=== PATIENT | male | born 1975 | race African-American/Black ===

== ENCOUNTER 2017-09-28 11:15 | Emergency (ER) | payer MEDICAID, MEDICARE ==
[~2017-09-28] VITALS: Ht 182.9 cm; Wt 81.8 kg
[~2017-09-28 11:15] MED LIST: RISP2TAB76 PO
[2017-09-28 12:46] LABS: BASOPHILS % (AUTO) 0.8 % (0.0-2.0); HEMATOCRIT 44.2 % (41-53); HEMOGLOBIN 15.1 g/dL (13.5-17.5); LYMPHOCYTES # (AUTO) 1.7 K/uL (1.0-4.8); LYMPHOCYTES % (AUTO) 23.2 % (22.0-44.0); MEAN CORPUSCULAR HEMOGLOBIN 30.7 pg (26.0-34.0); MEAN CORPUSCULAR HGB CONC 34.3 G/dL (31.0-37.0); MEAN CORPUSCULAR VOLUME 90 fL (80-100); MONOCYTES # (AUTO) 0.4 K/uL (0.1-1.0); MONOCYTES % (AUTO) 5.7 % (2.0-9.0); NEUTROPHILS % (AUTO) 68.3 % (40.0-70.0); PLATELET COUNT (AUTO) 232 K/uL (150-450); RED BLOOD CELL COUNT(AUTO) 4.94 MIL/uL (4.50-5.90); RED CELL DISTRIBUTION WIDTH 14.3 % (11.5-14.5)
[2017-09-28 12:56] LABS: ANION GAP 5 mmol/L (8-16); CALCIUM, TOTAL 9.2 mg/dL (8.8-10.5); CARBON DIOXIDE 34 mmol/L (22-29); CHLORIDE 101 mmol/L (98-107); CREATININE 0.96 mg/dL (0.60-1.30); GLOMERULAR FILTR. RATE CALC > 60 mL/min (>60); GLUCOSE,RANDOM 77 mg/dL (70-110); POTASSIUM 4.4 mmol/L (3.5-5.1); SODIUM SERUM 140 mmol/L (136-145); UREA NITROGEN, BLOOD 12 mg/dL (7-18)
[2017-09-28 13:02] LABS: ALANINE AMINOTRANSFERASE 46 U/L (12-78); ALBUMIN 3.7 g/dL (3.4-5.0); ALKALINE PHOSPHATASE 71 U/L (46-116); ASPARTATE AMINOTRANSFERASE 32 U/L (15-37); BILIRUBIN,TOTAL 0.3 mg/dL (0.1-1.0); TOTAL PROTEIN, SERUM 7.3 g/dL (6.4-8.2)
[2017-09-28 13:37] VITALS: BP 121/83
== END 2017-09-28 14:33 | disposition home or self-care (01) ==
LOC: EMS 11:17
DX: F20.9 Schizophrenia, unspecified (principal); F17.210 Nicotine dependence, cigarettes, uncomplicated
CPT/HCPCS: 36415; 80053; 85025; 99284; G0480

== ENCOUNTER 2018-01-01 17:10 | Emergency (ER) | payer MEDICARE, MEDICAID ==
[~2018-01-01] VITALS: Ht 182.9 cm; Wt 68.2 kg
[2018-01-01 18:54] VITALS: BP 130/72
== END 2018-01-01 19:53 | disposition left against medical advice (07) ==
LOC: EMS 17:12
DX: L84 Corns and callosities (principal); F17.210 Nicotine dependence, cigarettes, uncomplicated; Z88.8 Allergy status to other drugs, medicaments and biological substances
CPT/HCPCS: 99281; 99406

== ENCOUNTER 2018-01-04 16:37 | Emergency (ER) | payer MEDICARE, MEDICAID ==
[~2018-01-04] VITALS: Ht 182.9 cm; Wt 68.0 kg
[2018-01-04] MEDS ORDERED: BREX0.25 PO (16:49)
[2018-01-04 17:27] LABS: EOSINOPHILS % (AUTO) 3.7 % (1.0-6.0); HEMATOCRIT 42.9 % (41-53); HEMOGLOBIN 14.7 g/dL (13.5-17.5); LYMPHOCYTES # (AUTO) 2.2 K/uL (1.0-4.8); LYMPHOCYTES % (AUTO) 27.1 % (22.0-44.0); MEAN CORPUSCULAR HGB CONC 34.2 G/dL (31.0-37.0); MEAN CORPUSCULAR VOLUME 88 fL (80-100); MONOCYTES # (AUTO) 0.7 K/uL (0.1-1.0); MONOCYTES % (AUTO) 8.1 % (2.0-9.0); NEUTROPHILS # (AUTO) 4.9 K/uL (1.8-7.7); NEUTROPHILS % (AUTO) 60.1 % (40.0-70.0); PLATELET COUNT (AUTO) 257 K/uL (150-450); RED BLOOD CELL COUNT(AUTO) 4.89 MIL/uL (4.50-5.90); RED CELL DISTRIBUTION WIDTH 14.6 % (11.5-14.5)
[2018-01-04 17:40] LABS: AMPHET/METH SCREEN,URINE NEGATIVE (NEGATIVE); BARBITURATE SCREEN, URINE NEGATIVE (NEGATIVE); BENZODIAZEPINES SCREEN,URINE NEGATIVE (NEGATIVE); CANNABINOID SCREEN,URINE NEGATIVE (NEGATIVE); COCAINE SCREEN,URINE NEGATIVE (NEGATIVE); METHADONE SCREEN, URINE NEGATIVE (NEGATIVE); OPIATE SCREEN,URINE NEGATIVE (NEGATIVE); PHENCYCLIDINE SCREEN,URINE NEGATIVE (NEGATIVE)
[2018-01-04 17:43] LABS: ANION GAP 5 mmol/L (8-16); CALCIUM, TOTAL 9.2 mg/dL (8.8-10.5); CARBON DIOXIDE 31 mmol/L (22-29); CHLORIDE 102 mmol/L (98-107); GLOMERULAR FILTR. RATE CALC > 60 mL/min (>60); GLUCOSE,RANDOM 79 mg/dL (70-110); POTASSIUM 3.5 mmol/L (3.5-5.1); SODIUM SERUM 138 mmol/L (136-145); UREA NITROGEN, BLOOD 14 mg/dL (7-18)
[2018-01-04 17:49] LABS: ALANINE AMINOTRANSFERASE 36 U/L (12-78); ALBUMIN 3.6 g/dL (3.4-5.0); ALKALINE PHOSPHATASE 61 U/L (46-116); ASPARTATE AMINOTRANSFERASE 20 U/L (15-37); BILIRUBIN,TOTAL 0.2 mg/dL (0.1-1.0); TOTAL PROTEIN, SERUM 6.8 g/dL (6.4-8.2)
[2018-01-04 18:05] VITALS: BP 146/103
[2018-01-04] MEDS ORDERED: BACITRACIN 0.9 GM PACKET OINTMENT TP ONE (18:15)
[2018-01-05 10:21] LABS: GLUCOSE,POINT OF CARE 85 MG/DL (70-110)
== END 2018-01-04 18:39 | disposition home or self-care (01) ==
LOC: EMS 17:10
DX: F20.9 Schizophrenia, unspecified (principal); R56.9 Unspecified convulsions; F17.210 Nicotine dependence, cigarettes, uncomplicated
CPT/HCPCS: 36415; 80053; 80307; 82962; 85025; 99284; G0480

== ENCOUNTER 2018-01-06 12:28 | Emergency (ER) | payer MEDICARE, MEDICAID ==
[~2018-01-06] VITALS: Ht 182.9 cm; Wt 68.2 kg
[~2018-01-06 12:28] MED LIST changes: +BREX0.25 PO; -RISP2TAB76 PO
[2018-01-06 13:08] VITALS: BP 116/78
== END 2018-01-06 14:04 | disposition home or self-care (01) ==
LOC: EMS 12:32
DX: L84 Corns and callosities (principal); F20.9 Schizophrenia, unspecified; G40.909 Epilepsy, unspecified, not intractable, without status epilepticus; F17.210 Nicotine dependence, cigarettes, uncomplicated; Z88.8 Allergy status to other drugs, medicaments and biological substances
CPT/HCPCS: 99281

== ENCOUNTER 2018-01-30 12:55 | Emergency (ER) | payer MEDICARE, MEDICAID ==
[~2018-01-30] VITALS: Ht 182.9 cm; Wt 68.2 kg
[2018-01-30 13:00] VITALS: BP 147/72
== END 2018-01-30 15:31 | disposition left against medical advice (07) ==
LOC: EMS 12:56
DX: Z00.8 Encounter for other general examination (principal); F20.9 Schizophrenia, unspecified; Z53.21 Procedure and treatment not carried out due to patient leaving prior to being seen by health care provider

== ENCOUNTER 2018-03-13 19:51 | Emergency (ER) | payer MEDICARE, MEDICAID ==
[~2018-03-13] VITALS: Ht 188 cm; Wt 81.8 kg
[2018-03-13 21:10] VITALS: BP 130/96
[2018-03-13] MEDS ORDERED: VITAMINS A & D 5 GM OINTMENT PACKET TP ONE (21:15)
[2018-03-13] MEDS ORDERED: ACETAMINOPHEN 500 MG TABLET PO ONE (21:15)
== END 2018-03-13 21:20 | disposition home or self-care (01) ==
LOC: EMS 19:52
DX: L84 Corns and callosities (principal); F20.9 Schizophrenia, unspecified; F17.210 Nicotine dependence, cigarettes, uncomplicated; F15.10 Other stimulant abuse, uncomplicated
CPT/HCPCS: 99283; 99406

== ENCOUNTER 2018-10-06 09:08 | Emergency (ER) | payer MEDICARE, MEDICAID ==
[~2018-10-06] VITALS: Ht 172.7 cm; Wt 79.5 kg
[2018-10-06] MEDS ORDERED: BREX3TAB PO (09:17)
[2018-10-06] MEDS ORDERED: IBUPROFEN 800 MG TABLET PO ONE (11:15)
[2018-10-06 11:28] VITALS: BP 126/81
== END 2018-10-06 11:31 | disposition home or self-care (01) ==
LOC: EMS 09:08
DX: S46.912A Strain of unspecified muscle, fascia and tendon at shoulder and upper arm level, left arm, initial encounter (principal); F17.210 Nicotine dependence, cigarettes, uncomplicated; F15.90 Other stimulant use, unspecified, uncomplicated; Z79.899 Other long term (current) drug therapy; X58.XXXA Exposure to other specified factors, initial encounter; Y93.89 Activity, other specified; Y92.89 Other specified places as the place of occurrence of the external cause; Y99.8 Other external cause status

== ENCOUNTER 2019-01-27 14:30 | Emergency (ER) | payer MEDICARE, MEDICAID ==
[~2019-01-27] VITALS: Ht 185.4 cm; Wt 72.7 kg
[~2019-01-27 14:30] MED LIST changes: -BREX0.25 PO; +BREX3TAB PO
[2019-01-27 15:59] LABS: BASOPHILS % (AUTO) 0.8 % (0.0-2.0); EOSINOPHILS % (AUTO) 4.9 % (1.0-6.0); HEMATOCRIT 42.6 % (41-53); HEMOGLOBIN 14.7 g/dL (13.5-17.5); LYMPHOCYTES # (AUTO) 1.3 K/uL (1.0-4.8); LYMPHOCYTES % (AUTO) 22.3 % (22.0-44.0); MEAN CORPUSCULAR HEMOGLOBIN 30.1 pg (26.0-34.0); MEAN CORPUSCULAR HGB CONC 34.5 G/dL (31.0-37.0); MEAN CORPUSCULAR VOLUME 87 fL (80-100); MONOCYTES # (AUTO) 0.5 K/uL (0.1-1.0); MONOCYTES % (AUTO) 8.9 % (2.0-9.0); NEUTROPHILS # (AUTO) 3.8 K/uL (1.8-7.7); NEUTROPHILS % (AUTO) 63.1 % (40.0-70.0); PLATELET COUNT (AUTO) 264 K/uL (150-450); RED BLOOD CELL COUNT(AUTO) 4.89 MIL/uL (4.50-5.90); RED CELL DISTRIBUTION WIDTH 13.8 % (11.5-14.5)
[2019-01-27 16:10] LABS: ANION GAP 5 mmol/L (8-16); CALCIUM, TOTAL 8.4 mg/dL (8.8-10.5); CARBON DIOXIDE 29 mmol/L (22-29); CHLORIDE 104 mmol/L (98-107); CREATININE 0.94 mg/dL (0.60-1.30); GLOMERULAR FILTR. RATE CALC > 60 mL/min (>60); GLUCOSE,RANDOM 109 mg/dL (70-110); SODIUM SERUM 138 mmol/L (136-145); UREA NITROGEN, BLOOD 25 mg/dL (7-18)
[2019-01-27 16:18] LABS: ALANINE AMINOTRANSFERASE 27 U/L (12-78); ALBUMIN 3.4 g/dL (3.4-5.0); ALKALINE PHOSPHATASE 73 U/L (46-116); ASPARTATE AMINOTRANSFERASE 27 U/L (15-37); BILIRUBIN,TOTAL 0.3 mg/dL (0.1-1.0); TOTAL PROTEIN, SERUM 6.8 g/dL (6.4-8.2)
[2019-01-27 16:19] LABS: AMPHET/METH SCREEN,URINE POSITIVE (NEGATIVE); BARBITURATE SCREEN, URINE NEGATIVE (NEGATIVE); BENZODIAZEPINES SCREEN,URINE NEGATIVE (NEGATIVE); CANNABINOID SCREEN,URINE NEGATIVE (NEGATIVE); COCAINE SCREEN,URINE NEGATIVE (NEGATIVE); METHADONE SCREEN, URINE NEGATIVE (NEGATIVE); OPIATE SCREEN,URINE NEGATIVE (NEGATIVE)
[2019-01-27 16:30] LABS: PHENCYCLIDINE SCREEN,URINE NEGATIVE (NEGATIVE)
[2019-01-27] MEDS: ARIPiprazole 5 MG TABLET PO ONE (16:58)
[2019-01-27 17:59] VITALS: BP 125/78
== END 2019-01-27 18:15 | disposition home or self-care (01) ==
LOC: EMS 14:32
DX: F20.9 Schizophrenia, unspecified (principal); F17.210 Nicotine dependence, cigarettes, uncomplicated; F15.90 Other stimulant use, unspecified, uncomplicated; Z88.8 Allergy status to other drugs, medicaments and biological substances
CPT/HCPCS: 36415; 80053; 80307; 85025; 99284; 99406; G0480

== ENCOUNTER 2019-04-19 19:56 | Inpatient (IN) | payer MEDICAID, MEDICARE ==
[~2019-04-19] VITALS: Ht 182.9 cm; Wt 66.7 kg
[2019-04-19] MEDS ORDERED: ZOLPIDEM TARTRATE 10 MG TABLET PO PRN (20:30)
[2019-04-19 20:42] VITALS: BP 121/92
[2019-04-19 21:16] VITALS: BP 119/86
[2019-04-19] MEDS ORDERED: MAGNESIUM HYDROXIDE SUSPENSION 30 ML UDCUP PO PRN (22:15)
[2019-04-19] MEDS ORDERED: LOPERAMIDE HCL 2 MG CAPSULE PO PRN (22:15)
[2019-04-19] MEDS ORDERED: PETROLATUM,WHITE 28 GM JELLY TP PRN (22:15)
[2019-04-19] MEDS ORDERED: ONDANSETRON HCL 4 MG TABLET PO PRN (22:15)
[2019-04-19] MEDS ORDERED: CloNIDine HCL 0.1 MG TABLET PO PRN (22:15)
[2019-04-19] MEDS ORDERED: ACETAMINOPHEN 325 MG TABLET PO PRN (22:15)
[2019-04-19] MEDS ORDERED: NICOTINE 14 MG/24 HOUR PATCH TD PRN (22:15)
[2019-04-19] MEDS ORDERED: IBUPROFEN 400 MG TABLET PO PRN (22:15)
[2019-04-19] MEDS ORDERED: ALBUTEROL SULFATE HFA 90 MCG/PUFF 8 GM INHALER IH PRN (22:15)
[2019-04-19] MEDS ORDERED: DOCUSATE SODIUM 100 MG CAPSULE PO PRN (22:15)
[2019-04-19] MEDS ORDERED: MAG HYDROX/AL HYDROX/SIMETH ES 30 ML SUSPENSION UDCUP PO PRN (22:15)
[2019-04-19] MEDS ORDERED: GuaiFENesin/D-METHORPHAN [SUGAR-FREE] 200-20MG/10 ML SYRUP UDCUP PO PRN (22:15)
[2019-04-20 00:13] VITALS: BP 126/82
[2019-04-20 08:13] VITALS: BP 119/71
[2019-04-20 08:14] LABS: BASOPHILS % (AUTO) 0.4 % (0.0-2.0); EOSINOPHILS % (AUTO) 3.2 % (1.0-6.0); HEMATOCRIT 43.4 % (41-53); HEMOGLOBIN 14.3 g/dL (13.5-17.5); LYMPHOCYTES # (AUTO) 1.7 K/uL (1.0-4.8); LYMPHOCYTES % (AUTO) 25.9 % (22.0-44.0); MEAN CORPUSCULAR HEMOGLOBIN 29.7 pg (26.0-34.0); MEAN CORPUSCULAR VOLUME 90 fL (80-100); MONOCYTES # (AUTO) 0.5 K/uL (0.1-1.0); MONOCYTES % (AUTO) 8.3 % (2.0-9.0); NEUTROPHILS % (AUTO) 62.2 % (40.0-70.0); PLATELET COUNT (AUTO) 257 K/uL (150-450); RED BLOOD CELL COUNT(AUTO) 4.83 MIL/uL (4.50-5.90)
[2019-04-20 08:37] LABS: ALANINE AMINOTRANSFERASE 29 U/L (12-78); ALBUMIN 3.2 g/dL (3.4-5.0); ALKALINE PHOSPHATASE 65 U/L (46-116); ANION GAP 7 mmol/L (8-16); ASPARTATE AMINOTRANSFERASE 21 U/L (15-37); BILIRUBIN,TOTAL 0.1 mg/dL (0.1-1.0); CALCIUM, TOTAL 8.5 mg/dL (8.8-10.5); CARBON DIOXIDE 29 mmol/L (22-29); CHLORIDE 105 mmol/L (98-107); CHOLESTEROL 155 mg/dL (131-200); FREE T4 (FREE THYROXINE) 0.67 ng/dL (0.76-1.46); GLOMERULAR FILTR. RATE CALC > 60 mL/min (>60); GLUCOSE,RANDOM 82 mg/dL (70-110); HDL CHOLESTEROL 52 mg/dL (40-60); LDL CHOL (CALC.) 86 mg/dL (0-130); POTASSIUM 4.3 mmol/L (3.5-5.1); SODIUM SERUM 141 mmol/L (136-145); THYROID STIMULATING HORMONE 0.75 uIU/mL (0.36-3.74); TOTAL PROTEIN, SERUM 6.2 g/dL (6.4-8.2); TRIGLYCERIDES 85 mg/dL (15-150); UREA NITROGEN, BLOOD 13 mg/dL (7-18)
[2019-04-20] MEDS: ARIPiprazole 10 MG TABLET PO SCH (10:15)
[2019-04-20 16:08] VITALS: BP 120/87
[2019-04-21 05:04] VITALS: BP 119/60
[2019-04-21 08:50] VITALS: BP 118/75
[2019-04-21] MEDS: ARIPiprazole 10 MG TABLET PO SCH (08:56)
[2019-04-21 16:16] VITALS: BP 131/82
[2019-04-22 01:35] VITALS: BP 120/89
[2019-04-22] MEDS: ARIPiprazole 10 MG TABLET PO SCH (08:06)
[2019-04-22 08:13] VITALS: BP 114/81
[2019-04-22 16:00] VITALS: BP 112/69
[2019-04-22] MEDS: BREXPIPRAZOLE 1 MG TABLET PO SCH (20:36)
[2019-04-23 06:29] VITALS: BP 110/70
[2019-04-23 08:34] VITALS: BP 110/60
[2019-04-23 08:40] LABS: AMPHET/METH SCREEN,URINE NEGATIVE (NEGATIVE); BARBITURATE SCREEN, URINE NEGATIVE (NEGATIVE); BENZODIAZEPINES SCREEN,URINE NEGATIVE (NEGATIVE); CANNABINOID SCREEN,URINE NEGATIVE (NEGATIVE); COCAINE SCREEN,URINE NEGATIVE (NEGATIVE); METHADONE SCREEN, URINE NEGATIVE (NEGATIVE); OPIATE SCREEN,URINE NEGATIVE (NEGATIVE)
[2019-04-23 08:42] LABS: PHENCYCLIDINE SCREEN,URINE NEGATIVE (NEGATIVE)
[2019-04-23 08:49] LABS: APPEARANCE,URINE CLEAR (CLEAR); BILIRUBIN,URINE NEGATIVE (NEGATIVE); GLUCOSE, URINE (UA) NEGATIVE (NEGATIVE); KETONES,URINE NEGATIVE (NEGATIVE); LEUKOCYTE ESTERASE ,URINE NEGATIVE (NEGATIVE); NITRATE,URINE NEGATIVE (NEGATIVE); OCCULT BLOOD,URINE NEGATIVE (NEGATIVE); PH,URINE 6.5 (5.0-8.0); PROTEIN,URINE NEGATIVE (NEGATIVE); UROBILINOGEN,URINE 0.2 mg/dL (<=1.0)
[2019-04-23] MEDS: LORazepam 2 MG TABLET PO PRN (15:31)
[2019-04-23 16:13] VITALS: BP 120/71
[2019-04-23] MEDS: BREXPIPRAZOLE 1 MG TABLET PO SCH (20:22)
[2019-04-24 06:05] VITALS: BP 118/64
[2019-04-24 08:49] VITALS: BP 126/69
[2019-04-24 16:08] VITALS: BP 116/69
[2019-04-24] MEDS: LORazepam 2 MG TABLET PO PRN (17:17)
[2019-04-24] MEDS: BREXPIPRAZOLE 1 MG TABLET PO SCH (20:31)
[2019-04-25 05:03] VITALS: BP 120/81
[2019-04-25 08:12] VITALS: BP 117/71
[2019-04-25] MEDS ORDERED: BREX1TAB PO (11:01)
[2019-04-25] MEDS ORDERED: BREX3TAB PO (11:14)
== END 2019-04-25 12:32 | disposition home or self-care (01) | DRG 885 ==
LOC: B2X 20:25
PROVIDERS: ADMIT Psychiatry & Neurology Child & Adolescent Psychiatry; ATTEND Psychiatry & Neurology Child & Adolescent Psychiatry
DX: F25.0 Schizoaffective disorder, bipolar type (principal); R45.851 Suicidal ideations; K21.9 Gastro-esophageal reflux disease without esophagitis; E78.5 Hyperlipidemia, unspecified; Z88.8 Allergy status to other drugs, medicaments and biological substances; F41.9 Anxiety disorder, unspecified
CPT/HCPCS: 80307; 83036; 84439; 84443

== ENCOUNTER 2019-06-29 18:29 | Emergency (ER) | payer MEDICARE ==
[~2019-06-29] VITALS: Ht 182.9 cm; Wt 70.5 kg
[~2019-06-29 18:29] MED LIST changes: +BREX1TAB PO
[2019-06-29 18:32] VITALS: BP 165/92
== END 2019-06-29 19:30 | disposition left against medical advice (07) ==
LOC: EMS 18:30
DX: R20.0 Anesthesia of skin (principal); Z53.21 Procedure and treatment not carried out due to patient leaving prior to being seen by health care provider

== ENCOUNTER 2019-07-15 13:29 | Emergency (ER) | payer MEDICARE ==
[~2019-07-15] VITALS: Ht 180.3 cm; Wt 70.5 kg
[~2019-07-15 13:29] MED LIST changes: -BREX1TAB PO
[2019-07-15 13:33] VITALS: BP 139/87
== END 2019-07-15 15:27 | disposition left against medical advice (07) ==
LOC: EMS 13:31
DX: F22 Delusional disorders (principal); Z53.21 Procedure and treatment not carried out due to patient leaving prior to being seen by health care provider

== ENCOUNTER 2019-09-01 02:42 | Emergency (ER) | payer MEDICARE | END 2019-09-01 02:45 | disposition left against medical advice (07) | LOC: EMS 02:43 | DX: Z53.21 Procedure and treatment not carried out due to patient leaving prior to being seen by health care provider (principal) ==

== ENCOUNTER 2019-10-11 13:01 | Emergency (ER) | payer MEDICARE | END 2019-10-11 13:32 | disposition left against medical advice (07) | LOC: EMS 13:07 | DX: R11.0 Nausea (principal); Z53.21 Procedure and treatment not carried out due to patient leaving prior to being seen by health care provider ==

== ENCOUNTER 2019-11-07 07:08 | Emergency (ER) | payer MEDICARE ==
[~2019-11-07] VITALS: Ht 180.3 cm; Wt 68.2 kg
[2019-11-07] MEDS ORDERED: BREXPIPRAZOLE 1 MG TABLET PO ONE (08:00)
[2019-11-07 08:19] VITALS: BP 128/66
== END 2019-11-07 08:28 | disposition home or self-care (01) ==
LOC: EMS 07:11
DX: K40.90 Unilateral inguinal hernia, without obstruction or gangrene, not specified as recurrent (principal); F20.9 Schizophrenia, unspecified; F17.210 Nicotine dependence, cigarettes, uncomplicated; F15.90 Other stimulant use, unspecified, uncomplicated; Z79.899 Other long term (current) drug therapy; Z88.8 Allergy status to other drugs, medicaments and biological substances

== ENCOUNTER 2019-11-10 07:17 | Emergency (ER) | payer MEDICAID, MEDICARE ==
[~2019-11-10] VITALS: Ht 180.3 cm; Wt 68.2 kg
[2019-11-10 07:26] VITALS: BP 119/84
== END 2019-11-10 08:49 | disposition home or self-care (01) ==
LOC: EMS 07:20
DX: F20.9 Schizophrenia, unspecified (principal); Z76.0 Encounter for issue of repeat prescription; F17.210 Nicotine dependence, cigarettes, uncomplicated; F15.90 Other stimulant use, unspecified, uncomplicated; Z79.899 Other long term (current) drug therapy; Z88.5 Allergy status to narcotic agent

== ENCOUNTER 2019-11-11 14:14 | Emergency (ER) | payer MEDICAID, MEDICARE ==
[~2019-11-11] VITALS: Ht 177.8 cm; Wt 68.2 kg
[2019-11-11 14:19] VITALS: BP 137/86
[2019-11-11 14:37] LABS: GLUCOSE,POINT OF CARE 84 MG/DL (70-110)
== END 2019-11-11 16:01 | disposition home or self-care (01) ==
LOC: EMS 14:17
DX: F20.9 Schizophrenia, unspecified (principal); F17.210 Nicotine dependence, cigarettes, uncomplicated; F15.90 Other stimulant use, unspecified, uncomplicated; Z88.8 Allergy status to other drugs, medicaments and biological substances; Z59.0 Homelessness

== ENCOUNTER 2019-11-15 09:42 | Emergency (ER) | payer MEDICARE ==
[~2019-11-15] VITALS: Ht 177.8 cm; Wt 68.2 kg
[2019-11-15 09:46] VITALS: BP 124/84
== END 2019-11-15 11:02 | disposition left against medical advice (07) ==
LOC: EMS 09:47
DX: R05 Cough (principal); Z53.21 Procedure and treatment not carried out due to patient leaving prior to being seen by health care provider

== ENCOUNTER 2019-11-18 06:52 | Emergency (ER) | payer MEDICARE ==
[~2019-11-18] VITALS: Ht 182.9 cm; Wt 72.7 kg
[2019-11-18] MEDS ORDERED: OLAN5TAB40 PO (07:05)
[2019-11-18 07:19] VITALS: BP 131/89
[2019-11-18] MEDS ORDERED: ACETAMINOPHEN 500 MG TABLET PO ONE (08:00)
== END 2019-11-18 08:00 | disposition home or self-care (01) ==
LOC: EMS 06:52
DX: K40.90 Unilateral inguinal hernia, without obstruction or gangrene, not specified as recurrent (principal); F20.9 Schizophrenia, unspecified; F12.90 Cannabis use, unspecified, uncomplicated; F15.90 Other stimulant use, unspecified, uncomplicated; F17.210 Nicotine dependence, cigarettes, uncomplicated; Z88.8 Allergy status to other drugs, medicaments and biological substances; Z79.899 Other long term (current) drug therapy

== ENCOUNTER 2019-12-19 14:46 | Emergency (ER) | payer MEDICARE ==
[~2019-12-19] VITALS: Ht 182.9 cm; Wt 80.9 kg
[~2019-12-19 14:46] MED LIST changes: +OLAN5TAB40 PO
[2019-12-19 14:53] VITALS: BP 118/86
== END 2019-12-19 15:50 | disposition left against medical advice (07) ==
LOC: EMS 14:49
DX: M79.672 Pain in left foot (principal); M79.671 Pain in right foot; E11.9 Type 2 diabetes mellitus without complications; F41.9 Anxiety disorder, unspecified; Z88.8 Allergy status to other drugs, medicaments and biological substances; Z79.899 Other long term (current) drug therapy
CPT/HCPCS: 82948

== ENCOUNTER 2020-12-28 09:21 | Emergency (ER) | payer MEDICARE ==
[~2020-12-28] VITALS: Ht 177.8 cm; Wt 75.0 kg
[2020-12-28 09:30] VITALS: BP 132/77
== END 2020-12-28 10:04 | disposition left against medical advice (07) ==
LOC: EMS 09:25
DX: J11.1 Influenza due to unidentified influenza virus with other respiratory manifestations (principal); Z53.21 Procedure and treatment not carried out due to patient leaving prior to being seen by health care provider

== ENCOUNTER 2020-12-29 09:14 | Emergency (ER) | payer MEDICARE | END 2020-12-29 09:40 | disposition left against medical advice (07) | LOC: EMS 09:20 | DX: R11.2 Nausea with vomiting, unspecified (principal); Z53.21 Procedure and treatment not carried out due to patient leaving prior to being seen by health care provider ==

== ENCOUNTER 2021-01-21 13:54 | Emergency (ER) | payer MEDICARE ==
[~2021-01-21] VITALS: Ht 182.9 cm; Wt 70.9 kg
[2021-01-21 15:35] LABS: COVID AG,FIA SOURCE NASOPHARYNGEAL
[2021-01-21] MEDS ORDERED: BENZONATATE 100 MG CAPSULE PO ONE (15:45)
[2021-01-21 16:29] VITALS: BP 126/90
== END 2021-01-21 16:50 | disposition home or self-care (01) ==
LOC: EMS 13:59
DX: R05 Cough (principal); F20.9 Schizophrenia, unspecified; F17.210 Nicotine dependence, cigarettes, uncomplicated; F12.90 Cannabis use, unspecified, uncomplicated; Z20.822 Contact with and (suspected) exposure to COVID-19; Z88.8 Allergy status to other drugs, medicaments and biological substances
CPT/HCPCS: 71045; 87426; 99284; U0003

== ENCOUNTER 2021-02-05 08:31 | Emergency (ER) | payer MEDICARE | END 2021-02-05 09:01 | disposition left against medical advice (07) | LOC: EMS 08:36 | DX: R05 Cough (principal); Z53.21 Procedure and treatment not carried out due to patient leaving prior to being seen by health care provider ==

== ENCOUNTER 2021-04-10 06:27 | Emergency (ER) | payer MEDICARE ==
[~2021-04-10] VITALS: Ht 182.9 cm; Wt 75.0 kg
[~2021-04-10 06:27] MED LIST changes: -OLAN5TAB40 PO; +OLAN5TAB94 PO
[2021-04-10 06:40] VITALS: BP 138/89
== END 2021-04-10 07:51 | disposition home or self-care (01) ==
LOC: EMS 06:27
DX: M79.661 Pain in right lower leg (principal); F20.9 Schizophrenia, unspecified; F17.210 Nicotine dependence, cigarettes, uncomplicated; F12.90 Cannabis use, unspecified, uncomplicated
CPT/HCPCS: 99281; Z7502

== ENCOUNTER 2021-04-12 15:46 | Emergency (ER) | payer MEDICARE ==
[~2021-04-12] VITALS: Ht 182.9 cm; Wt 75.0 kg
[2021-04-12 15:48] VITALS: BP 127/71
[2021-04-12] MEDS ORDERED: IBUPROFEN 600 MG TABLET PO ONE (17:45)
[2021-04-12] MEDS ORDERED: ACETAMINOPHEN 500 MG TABLET PO ONE (17:45)
== END 2021-04-12 18:05 | disposition home or self-care (01) ==
LOC: EMS 15:46
DX: M79.604 Pain in right leg (principal); F20.9 Schizophrenia, unspecified; F17.210 Nicotine dependence, cigarettes, uncomplicated
CPT/HCPCS: 99283

== ENCOUNTER 2021-04-13 13:00 | Emergency (ER) | payer MEDICARE ==
[~2021-04-13] VITALS: Ht 175.3 cm; Wt 72.7 kg
[2021-04-13 13:22] VITALS: BP 156/78
== END 2021-04-13 15:02 | disposition left against medical advice (07) ==
LOC: EMS 13:34
DX: G89.29 Other chronic pain (principal); M79.604 Pain in right leg; F20.9 Schizophrenia, unspecified; F17.210 Nicotine dependence, cigarettes, uncomplicated; F12.90 Cannabis use, unspecified, uncomplicated; Z88.8 Allergy status to other drugs, medicaments and biological substances; Z79.899 Other long term (current) drug therapy
CPT/HCPCS: 99281; Z7502

== ENCOUNTER 2021-04-15 05:59 | Emergency (ER) | payer MEDICARE | END 2021-04-15 06:10 | disposition left against medical advice (07) | LOC: EMS 06:00 | DX: M79.606 Pain in leg, unspecified (principal); Z53.21 Procedure and treatment not carried out due to patient leaving prior to being seen by health care provider ==

== ENCOUNTER 2021-04-22 05:39 | Emergency (ER) | payer MEDICARE ==
[~2021-04-22] VITALS: Ht 182.9 cm; Wt 71.8 kg
[2021-04-22] MEDS ORDERED: ACETAMINOPHEN 325 MG TABLET PO ONE (06:30)
[2021-04-22] MEDS ORDERED: BREXPIPRAZOLE 1 MG TABLET PO ONE (06:30)
[2021-04-22 06:51] VITALS: BP 124/73
== END 2021-04-22 08:40 | disposition home or self-care (01) ==
LOC: EMS 05:39
DX: R60.0 Localized edema (principal); F20.9 Schizophrenia, unspecified; F17.210 Nicotine dependence, cigarettes, uncomplicated; F12.90 Cannabis use, unspecified, uncomplicated; Z88.8 Allergy status to other drugs, medicaments and biological substances
CPT/HCPCS: 93971; 99284; A9575; Q9967; Z7502; Z7610

== ENCOUNTER 2021-05-29 21:12 | Emergency (ER) | payer MEDICARE ==
[~2021-05-29] VITALS: Ht 182.9 cm; Wt 65.0 kg
[2021-05-30] MEDS ORDERED: ACETAMINOPHEN 500 MG TABLET PO ONE (01:15)
[2021-05-30 01:57] VITALS: BP 128/77
== END 2021-05-30 03:33 | disposition home or self-care (01) ==
LOC: EMS 21:14
DX: M79.604 Pain in right leg (principal); M79.89 Other specified soft tissue disorders; R60.0 Localized edema; F20.9 Schizophrenia, unspecified; F17.210 Nicotine dependence, cigarettes, uncomplicated; F12.90 Cannabis use, unspecified, uncomplicated; Z88.8 Allergy status to other drugs, medicaments and biological substances
CPT/HCPCS: 93971; 99284; 73590-TC; Z7502; Z7610

== ENCOUNTER 2021-07-07 18:55 | Emergency (ER) | payer MEDICARE ==
[~2021-07-07] VITALS: Ht 182.9 cm; Wt 66.8 kg
[2021-07-07 21:14] LABS: EOSINOPHILS % (AUTO) 2.7 % (1.0-6.0); HEMATOCRIT 41.5 % (41-53); HEMOGLOBIN 13.9 g/dL (13.5-17.5); LYMPHOCYTES # (AUTO) 1.6 K/uL (1.0-4.8); LYMPHOCYTES % (AUTO) 21.4 % (22.0-44.0); MEAN CORPUSCULAR HEMOGLOBIN 27.2 pg (26.0-34.0); MEAN CORPUSCULAR HGB CONC 33.4 G/dL (31.0-37.0); MEAN CORPUSCULAR VOLUME 82 fL (80-100); MONOCYTES # (AUTO) 0.6 K/uL (0.1-1.0); MONOCYTES % (AUTO) 7.9 % (2.0-9.0); PLATELET COUNT (AUTO) 299 K/uL (150-450); RED BLOOD CELL COUNT(AUTO) 5.09 MIL/uL (4.50-5.90); RED CELL DISTRIBUTION WIDTH 16.2 % (11.5-14.5)
[2021-07-07 21:27] LABS: ALANINE AMINOTRANSFERASE 26 U/L (12-78); ALBUMIN 3.6 g/dL (3.4-5.0); ALKALINE PHOSPHATASE 257 U/L (46-116); ASPARTATE AMINOTRANSFERASE 18 U/L (15-37); BILIRUBIN,TOTAL 0.3 mg/dL (0.1-1.0); CALCIUM, TOTAL 8.5 mg/dL (8.8-10.5); CARBON DIOXIDE 31 mmol/L (22-29); CREATININE 1.07 mg/dL (0.60-1.30); GLOMERULAR FILTR. RATE CALC > 60 mL/min (>60); GLUCOSE,RANDOM 82 mg/dL (70-110); TOTAL PROTEIN, SERUM 7.7 g/dL (6.4-8.2); UREA NITROGEN, BLOOD 23 mg/dL (7-18)
[2021-07-07 21:40] LABS: ANION GAP 8 mmol/L (8-16); CHLORIDE 103 mmol/L (98-107); POTASSIUM 4.1 mmol/L (3.5-5.1); SODIUM SERUM 142 mmol/L (136-145)
[2021-07-07 22:43] VITALS: BP 111/77
== END 2021-07-08 00:24 | disposition home or self-care (01) ==
LOC: EMS 18:57
DX: M79.89 Other specified soft tissue disorders (principal); F20.9 Schizophrenia, unspecified; F17.210 Nicotine dependence, cigarettes, uncomplicated; F12.90 Cannabis use, unspecified, uncomplicated; Z88.8 Allergy status to other drugs, medicaments and biological substances
CPT/HCPCS: 80053; 85025; 93971; 99284

== ENCOUNTER → 2021-09-03 14:08 | Emergency (ER) | payer MEDICARE | END | disposition left against medical advice (07) | LOC: EMS 14:08 | DX: Z53.21 Procedure and treatment not carried out due to patient leaving prior to being seen by health care provider (principal) ==

== ENCOUNTER 2021-09-13 07:53 | Emergency (ER) | payer MEDICARE ==
[~2021-09-13] VITALS: Ht 182.9 cm; Wt 70.5 kg
[2021-09-13] MEDS ORDERED: IBUPROFEN 600 MG TABLET PO ONE (08:00)
[2021-09-13] MEDS ORDERED: ACETAMINOPHEN 500 MG TABLET PO ONE (08:00)
[2021-09-13 08:14] LABS: COVID AG,FIA SOURCE NASOPHARYNGEAL
[2021-09-13 08:38] LABS: INFLUENZA TYPE A NEGATIVE FOR TYPE A (NEGATIVE); INFLUENZA TYPE B NEGATIVE FOR TYPE B (NEGATIVE)
[2021-09-13 09:23] VITALS: BP 130/80
== END 2021-09-13 09:30 | disposition home or self-care (01) ==
LOC: EMS 07:53
DX: R50.9 Fever, unspecified (principal); F20.9 Schizophrenia, unspecified; F15.90 Other stimulant use, unspecified, uncomplicated; F12.90 Cannabis use, unspecified, uncomplicated; F17.210 Nicotine dependence, cigarettes, uncomplicated; Z88.0 Allergy status to penicillin; Z88.8 Allergy status to other drugs, medicaments and biological substances; Z79.899 Other long term (current) drug therapy; Z59.00 Homelessness unspecified; Z20.822 Contact with and (suspected) exposure to COVID-19
CPT/HCPCS: 82962; 87804; 99283

== ENCOUNTER 2021-10-29 09:19 | Emergency (ER) | payer MEDICARE, MEDICAID ==
[~2021-10-29] VITALS: Ht 182.9 cm; Wt 70.5 kg
[2021-10-29 10:01] LABS: GLUCOMETER DEV NAME(LOC) ERT.5; GLUCOSE,POINT OF CARE 95 MG/DL (70-110)
[2021-10-29 10:39] LABS: BASOPHILS % (AUTO) 0.7 % (0.0-2.0); EOSINOPHILS % (AUTO) 2.1 % (1.0-6.0); HEMATOCRIT 41.6 % (41-53); HEMOGLOBIN 14.1 g/dL (13.5-17.5); LYMPHOCYTES # (AUTO) 1.6 K/uL (1.0-4.8); LYMPHOCYTES % (AUTO) 23.6 % (22.0-44.0); MEAN CORPUSCULAR HEMOGLOBIN 29.2 pg (26.0-34.0); MEAN CORPUSCULAR HGB CONC 33.9 G/dL (31.0-37.0); MEAN CORPUSCULAR VOLUME 86 fL (80-100); MONOCYTES # (AUTO) 0.5 K/uL (0.1-1.0); MONOCYTES % (AUTO) 6.7 % (2.0-9.0); NEUTROPHILS # (AUTO) 4.5 K/uL (1.8-7.7); NEUTROPHILS % (AUTO) 66.9 % (40.0-70.0); PLATELET COUNT (AUTO) 285 K/uL (150-450); RED BLOOD CELL COUNT(AUTO) 4.83 MIL/uL (4.50-5.90); RED CELL DISTRIBUTION WIDTH 14.1 % (11.5-14.5)
[2021-10-29 10:52] LABS: ANION GAP 5 mmol/L (8-16); CALCIUM, TOTAL 9.1 mg/dL (8.8-10.5); CARBON DIOXIDE 32 mmol/L (22-29); CHLORIDE 98 mmol/L (98-107); CREATININE 0.93 mg/dL (0.60-1.30); GLOMERULAR FILTR. RATE CALC > 60 mL/min (>60); GLUCOSE,RANDOM 83 mg/dL (70-110); POTASSIUM 4.2 mmol/L (3.5-5.1); SODIUM SERUM 135 mmol/L (136-145); UREA NITROGEN, BLOOD 13 mg/dL (7-18)
[2021-10-29 10:59] LABS: ALANINE AMINOTRANSFERASE 37 U/L (12-78); ALBUMIN 3.7 g/dL (3.4-5.0); ALKALINE PHOSPHATASE 122 U/L (46-116); ASPARTATE AMINOTRANSFERASE 28 U/L (15-37); BILIRUBIN,TOTAL 0.3 mg/dL (0.1-1.0); TOTAL PROTEIN, SERUM 7.5 g/dL (6.4-8.2)
[2021-10-29 11:04] LABS: LACTIC ACID 0.8 mmol/L (0.4-2.0)
[2021-10-29 11:44] LABS: COVID AG,FIA SOURCE NASOPHARYNGEAL
[2021-10-29] MEDS ORDERED: ACETAMINOPHEN 500 MG TABLET PO ONE (11:45)
[2021-10-29] MEDS ORDERED: IBUPROFEN 400 MG TABLET PO ONE (11:45)
[2021-10-29 11:48] LABS: APPEARANCE,URINE CLEAR (CLEAR); BILIRUBIN,URINE NEGATIVE (NEGATIVE); GLUCOSE, URINE (UA) NEGATIVE (NEGATIVE); KETONES,URINE NEGATIVE (NEGATIVE); LEUKOCYTE ESTERASE ,URINE NEGATIVE (NEGATIVE); NITRATE,URINE NEGATIVE (NEGATIVE); OCCULT BLOOD,URINE NEGATIVE (NEGATIVE); PROTEIN,URINE NEGATIVE (NEGATIVE)
[2021-10-29 12:00] VITALS: BP 142/96
[2021-10-29 12:12] LABS: BACTERIA,URINE None Seen /HPF (None Seen); RBC,URINE None Seen /HPF (0-2); SQUAMOUS EPITHELIAL CELL,UR None Seen /LPF (None Seen); WBC,URINE None Seen /HPF (0-5)
== END 2021-10-29 13:15 | disposition left against medical advice (07) ==
LOC: EMS 09:24
DX: K40.90 Unilateral inguinal hernia, without obstruction or gangrene, not specified as recurrent (principal); I10 Essential (primary) hypertension; E11.9 Type 2 diabetes mellitus without complications; F15.90 Other stimulant use, unspecified, uncomplicated; F17.210 Nicotine dependence, cigarettes, uncomplicated; Z88.0 Allergy status to penicillin; Z88.8 Allergy status to other drugs, medicaments and biological substances; Z20.822 Contact with and (suspected) exposure to COVID-19
CPT/HCPCS: 80053; 81001; 82962; 83605; 85025; 99283

== ENCOUNTER 2021-10-31 06:06 | Emergency (ER) | payer MEDICARE, MEDICAID ==
[~2021-10-31] VITALS: Ht 182.9 cm; Wt 70.5 kg
[2021-10-31 06:09] VITALS: BP 124/77
== END 2021-10-31 07:27 | disposition home or self-care (01) ==
LOC: EMS 06:09
DX: K40.90 Unilateral inguinal hernia, without obstruction or gangrene, not specified as recurrent (principal); F25.0 Schizoaffective disorder, bipolar type; I10 Essential (primary) hypertension; E11.9 Type 2 diabetes mellitus without complications; F15.90 Other stimulant use, unspecified, uncomplicated; F17.210 Nicotine dependence, cigarettes, uncomplicated; Z59.00 Homelessness unspecified; Z88.0 Allergy status to penicillin; Z88.8 Allergy status to other drugs, medicaments and biological substances; Z79.899 Other long term (current) drug therapy
CPT/HCPCS: 99281; Z7502

== ENCOUNTER 2021-11-04 00:43 | Emergency (ER) | payer MEDICARE, MEDICAID ==
[~2021-11-04] VITALS: Ht 182.9 cm; Wt 70.0 kg
[2021-11-04 01:08] VITALS: BP 132/89
[2021-11-04] MEDS ORDERED: LORATADINE 10 MG TABLET PO ONE (01:30)
== END 2021-11-04 02:43 | disposition home or self-care (01) ==
LOC: EMS 00:47
DX: L29.9 Pruritus, unspecified (principal); F31.9 Bipolar disorder, unspecified; E11.9 Type 2 diabetes mellitus without complications; I10 Essential (primary) hypertension; F17.210 Nicotine dependence, cigarettes, uncomplicated; F19.90 Other psychoactive substance use, unspecified, uncomplicated; Z59.00 Homelessness unspecified; Z88.0 Allergy status to penicillin; Z88.8 Allergy status to other drugs, medicaments and biological substances
CPT/HCPCS: 99283

== ENCOUNTER 2021-11-14 22:45 | Emergency (ER) | payer MEDICARE, MEDICAID ==
[~2021-11-14] VITALS: Ht 182.9 cm; Wt 70.5 kg
[2021-11-15 01:40] LABS: GLUCOSE,POINT OF CARE 107 MG/DL (70-110)
[2021-11-15 02:04] VITALS: BP 120/79
== END 2021-11-15 02:18 | disposition home or self-care (01) ==
LOC: EMS 22:48
DX: K40.90 Unilateral inguinal hernia, without obstruction or gangrene, not specified as recurrent (principal); I10 Essential (primary) hypertension; E11.9 Type 2 diabetes mellitus without complications; F31.9 Bipolar disorder, unspecified; F20.9 Schizophrenia, unspecified; F15.90 Other stimulant use, unspecified, uncomplicated; F17.210 Nicotine dependence, cigarettes, uncomplicated; Z59.00 Homelessness unspecified; Z88.0 Allergy status to penicillin; Z88.8 Allergy status to other drugs, medicaments and biological substances; Z79.899 Other long term (current) drug therapy
CPT/HCPCS: 82962; 99282

== ENCOUNTER 2021-12-20 19:03 | Emergency (ER) | payer MEDICARE, MEDICAID ==
[~2021-12-20] VITALS: Ht 182.9 cm; Wt 70.0 kg
[2021-12-20] MEDS ORDERED: IBUPROFEN 600 MG TABLET PO ONE (20:15)
[2021-12-20 20:17] VITALS: BP 119/81
== END 2021-12-20 20:37 | disposition home or self-care (01) ==
LOC: EMS 19:17
DX: L84 Corns and callosities (principal); E11.9 Type 2 diabetes mellitus without complications; I10 Essential (primary) hypertension; F20.9 Schizophrenia, unspecified; F19.90 Other psychoactive substance use, unspecified, uncomplicated; Z59.00 Homelessness unspecified; Z88.0 Allergy status to penicillin; Z88.8 Allergy status to other drugs, medicaments and biological substances
CPT/HCPCS: 99283

== ENCOUNTER 2022-01-07 18:55 | Emergency (ER) | payer MEDICARE, MEDICAID ==
[~2022-01-07] VITALS: Ht 182.9 cm; Wt 68.6 kg
[2022-01-07 19:04] VITALS: BP 113/73
== END 2022-01-07 21:05 | disposition left against medical advice (07) ==
LOC: EMS 18:55
DX: F25.0 Schizoaffective disorder, bipolar type (principal); E11.9 Type 2 diabetes mellitus without complications; I10 Essential (primary) hypertension; F15.90 Other stimulant use, unspecified, uncomplicated; Z59.00 Homelessness unspecified; Z98.890 Other specified postprocedural states; Z88.0 Allergy status to penicillin; Z88.8 Allergy status to other drugs, medicaments and biological substances
CPT/HCPCS: 99281

== ENCOUNTER 2022-01-10 17:18 | Emergency (ER) | payer MEDICARE, MEDICAID ==
[~2022-01-10] VITALS: Ht 182.9 cm; Wt 75.0 kg
[2022-01-10 20:00] VITALS: BP 115/79
[2022-01-10] MEDS ORDERED: OLANZapine 5 MG TABLET PO ONE (20:45)
[2022-01-10] MEDS ORDERED: LORazepam 1 MG TABLET PO ONE (20:45)
== END 2022-01-10 21:30 | disposition home or self-care (01) ==
LOC: EMS 17:18
DX: F25.0 Schizoaffective disorder, bipolar type (principal); F31.9 Bipolar disorder, unspecified; E11.9 Type 2 diabetes mellitus without complications; I10 Essential (primary) hypertension; F15.90 Other stimulant use, unspecified, uncomplicated; Z98.890 Other specified postprocedural states; Z88.0 Allergy status to penicillin; Z88.8 Allergy status to other drugs, medicaments and biological substances; Z59.00 Homelessness unspecified
CPT/HCPCS: 99284

== ENCOUNTER 2022-01-15 16:05 | Emergency (ER) | payer MEDICARE, MEDICAID | END 2022-01-15 17:08 | disposition left against medical advice (07) | LOC: EMS 16:05 | DX: Z00.00 Encounter for general adult medical examination without abnormal findings (principal); Z53.21 Procedure and treatment not carried out due to patient leaving prior to being seen by health care provider ==

== ENCOUNTER 2022-01-29 06:47 | Emergency (ER) | payer MEDICARE, MEDICAID ==
[~2022-01-29] VITALS: Ht 182.9 cm; Wt 75.0 kg
[2022-01-29 06:52] VITALS: BP 125/76
== END 2022-01-29 09:16 | disposition left against medical advice (07) ==
LOC: EMS 06:49
DX: Z53.21 Procedure and treatment not carried out due to patient leaving prior to being seen by health care provider (principal)

== ENCOUNTER 2022-02-03 19:07 | Emergency (ER) | payer MEDICARE, MEDICAID ==
[~2022-02-03] VITALS: Ht 182.9 cm; Wt 65.7 kg
[2022-02-03 19:25] VITALS: BP 123/80
== END 2022-02-04 03:06 | disposition left against medical advice (07) ==
LOC: EMS 19:20
DX: Z53.21 Procedure and treatment not carried out due to patient leaving prior to being seen by health care provider (principal)

== ENCOUNTER 2022-03-01 15:52 | Emergency (ER) | payer MEDICARE, MEDICAID | END 2022-03-01 16:41 | disposition left against medical advice (07) | LOC: EMS 15:54 | DX: Z53.21 Procedure and treatment not carried out due to patient leaving prior to being seen by health care provider (principal) ==

== ENCOUNTER 2022-03-03 19:05 | Emergency (ER) | payer MEDICARE, MEDICAID | END 2022-03-03 19:33 | disposition left against medical advice (07) | LOC: EMS 19:09 | DX: R55 Syncope and collapse (principal); F20.9 Schizophrenia, unspecified; R45.1 Restlessness and agitation; F31.9 Bipolar disorder, unspecified; E11.9 Type 2 diabetes mellitus without complications; I10 Essential (primary) hypertension; F15.90 Other stimulant use, unspecified, uncomplicated; Z98.890 Other specified postprocedural states; Z59.00 Homelessness unspecified; Z88.0 Allergy status to penicillin; Z88.8 Allergy status to other drugs, medicaments and biological substances | CPT/HCPCS: 99281; 99283 ==

== ENCOUNTER 2022-03-15 01:14 | Emergency (ER) | payer MEDICARE, MEDICAID | END 2022-03-15 02:00 | disposition left against medical advice (07) | LOC: EMS 01:15 | DX: Z53.21 Procedure and treatment not carried out due to patient leaving prior to being seen by health care provider (principal) ==

== ENCOUNTER 2022-04-04 08:38 | Emergency (ER) | payer MEDICARE, MEDICAID | END 2022-04-04 09:31 | disposition left against medical advice (07) | LOC: EMS 08:38 | DX: Z53.21 Procedure and treatment not carried out due to patient leaving prior to being seen by health care provider (principal) ==

== ENCOUNTER 2022-04-06 22:56 | Emergency (ER) | payer MEDICARE, MEDICAID | END 2022-04-06 23:34 | disposition left against medical advice (07) | LOC: EMS 22:56 | DX: Z53.21 Procedure and treatment not carried out due to patient leaving prior to being seen by health care provider (principal) ==

== ENCOUNTER 2022-09-29 14:38 | Emergency (ER) | payer MEDICARE, MEDICAID ==
[~2022-09-29] VITALS: Ht 182.9 cm; Wt 79.5 kg
[2022-09-29 14:41] VITALS: BP 135/64
[2022-09-29] MEDS ORDERED: LIDOCAINE 1% 10 ML VIAL SQ ONE (15:15)
[2022-09-29] MEDS ORDERED: ACETAMINOPHEN 500 MG TABLET PO ONE (15:15)
[2022-09-29] MEDS ORDERED: CEPHALEXIN MONOHYDRATE 500 MG CAPSULE PO ONE (15:15)
[2022-09-29] MEDS ORDERED: DOXY-354 PO (15:29)
[2022-09-29] MEDS ORDERED: ACET-66 PO (15:29)
== END 2022-09-29 15:46 | disposition home or self-care (01) ==
LOC: EMS 14:41
DX: S60.311A Abrasion of right thumb, initial encounter (principal); L03.011 Cellulitis of right finger; F31.9 Bipolar disorder, unspecified; E11.9 Type 2 diabetes mellitus without complications; I10 Essential (primary) hypertension; F20.9 Schizophrenia, unspecified; F15.90 Other stimulant use, unspecified, uncomplicated; Z59.00 Homelessness unspecified; Z88.0 Allergy status to penicillin; Z88.8 Allergy status to other drugs, medicaments and biological substances; X58.XXXA Exposure to other specified factors, initial encounter; Y93.89 Activity, other specified; Y92.89 Other specified places as the place of occurrence of the external cause; Y99.8 Other external cause status
CPT/HCPCS: 99283; 10060; J3490

== ENCOUNTER 2022-10-16 18:53 | Emergency (ER) | payer MEDICARE, MEDICAID ==
[~2022-10-16] VITALS: Ht 185.4 cm; Wt 65.0 kg
[~2022-10-16 18:53] MED LIST changes: +ACET-66 PO; +DOXY-354 PO
[2022-10-16 18:57] VITALS: BP 127/85
[2022-10-16 21:24] LABS: BASOPHILS % (AUTO) 0.6 % (0.0-2.0); EOSINOPHILS % (AUTO) 1.3 % (1.0-6.0); HEMATOCRIT 37.3 % (41-53); HEMOGLOBIN 12.4 g/dL (13.5-17.5); LYMPHOCYTES # (AUTO) 1.6 K/uL (1.0-4.8); LYMPHOCYTES % (AUTO) 14.6 % (22.0-44.0); MEAN CORPUSCULAR HGB CONC 33.2 G/dL (31.0-37.0); MEAN CORPUSCULAR VOLUME 87 fL (80-100); MONOCYTES # (AUTO) 0.8 K/uL (0.1-1.0); MONOCYTES % (AUTO) 7.1 % (2.0-9.0); NEUTROPHILS # (AUTO) 8.5 K/uL (1.8-7.7); NEUTROPHILS % (AUTO) 76.4 % (40.0-70.0); PLATELET COUNT (AUTO) 387 K/uL (150-450); RED BLOOD CELL COUNT(AUTO) 4.28 MIL/uL (4.50-5.90); RED CELL DISTRIBUTION WIDTH 14.5 % (11.5-14.5)
[2022-10-16 21:34] LABS: ANION GAP 10 mmol/L (8-16); CALCIUM, TOTAL 8.5 mg/dL (8.8-10.5); CARBON DIOXIDE 28 mmol/L (22-29); CHLORIDE 101 mmol/L (98-107); CREATININE 1.21 mg/dL (0.60-1.30); GLUCOSE,RANDOM 104 mg/dL (70-110); POTASSIUM 3.8 mmol/L (3.5-5.1); SODIUM SERUM 139 mmol/L (136-145); UREA NITROGEN, BLOOD 25 mg/dL (7-18)
[2022-10-16 21:35] LABS: GLOMERULAR FILTR. RATE CALC > 60 mL/min (>60)
[2022-10-16 21:40] LABS: ALANINE AMINOTRANSFERASE 39 U/L (12-78); ALBUMIN 3.1 g/dL (3.4-5.0); ALKALINE PHOSPHATASE 100 U/L (46-116); ASPARTATE AMINOTRANSFERASE 32 U/L (15-37); BILIRUBIN,TOTAL 0.2 mg/dL (0.1-1.0); TOTAL PROTEIN, SERUM 6.9 g/dL (6.4-8.2)
[2022-10-16] MEDS ORDERED: OLANZapine 5 MG RAPDIS TABLET PO ONE (22:45)
== END 2022-10-17 00:35 | disposition home or self-care (01) ==
LOC: EMS 18:53
DX: F20.9 Schizophrenia, unspecified (principal); F31.9 Bipolar disorder, unspecified; E11.9 Type 2 diabetes mellitus without complications; I10 Essential (primary) hypertension; F15.90 Other stimulant use, unspecified, uncomplicated; Z59.00 Homelessness unspecified; Z98.890 Other specified postprocedural states; Z88.0 Allergy status to penicillin; Z88.8 Allergy status to other drugs, medicaments and biological substances; Z91.199 Patient's noncompliance with other medical treatment and regimen due to unspecified reason
CPT/HCPCS: 99283; 80053; 85025; 36415; G0480; 99282

== ENCOUNTER 2022-11-25 17:48 | Emergency (ER) | payer MEDICARE, MEDICAID ==
[~2022-11-25] VITALS: Ht 182.9 cm; Wt 70.5 kg
[~2022-11-25 17:48] MED LIST changes: -DOXY-354 PO
[2022-11-25] MEDS ORDERED: RISP1TAB48 PO (17:53)
[2022-11-25 17:54] VITALS: BP 110/69
== END 2022-11-25 22:53 | disposition home or self-care (01) ==
LOC: EMS 17:50
DX: M79.641 Pain in right hand (principal); F20.9 Schizophrenia, unspecified; F15.90 Other stimulant use, unspecified, uncomplicated; F31.9 Bipolar disorder, unspecified; E11.9 Type 2 diabetes mellitus without complications; I10 Essential (primary) hypertension; Z59.00 Homelessness unspecified
CPT/HCPCS: 99283

== ENCOUNTER 2022-12-21 22:50 | Emergency (ER) | payer MEDICARE, MEDICAID ==
[~2022-12-21 22:50] MED LIST changes: -ACET-66 PO; +RISP1TAB48 PO
[2022-12-22] MEDS ORDERED: PERTUSS(ACELL),DIPH,TET VAC/PF 0.5 ML SYRINGE IM. ONE (00:30)
== END 2022-12-22 01:45 | disposition home or self-care (01) ==
LOC: EMS 22:52
DX: S51.811A Laceration without foreign body of right forearm, initial encounter (principal); F31.9 Bipolar disorder, unspecified; E11.9 Type 2 diabetes mellitus without complications; I10 Essential (primary) hypertension; F20.9 Schizophrenia, unspecified; F15.90 Other stimulant use, unspecified, uncomplicated; Z88.0 Allergy status to penicillin; Z88.8 Allergy status to other drugs, medicaments and biological substances; Z59.00 Homelessness unspecified; Z98.890 Other specified postprocedural states; X99.8XXA Assault by other sharp object, initial encounter; Y93.89 Activity, other specified; Y92.89 Other specified places as the place of occurrence of the external cause; Y99.8 Other external cause status
CPT/HCPCS: 12001; 12002; 90471; 90715; 99283

== ENCOUNTER 2023-04-18 16:28 | Emergency (ER) | payer MEDICARE, MEDICAID ==
[~2023-04-18] VITALS: Ht 183.5 cm; Wt 65.0 kg
[2023-04-18 16:35] VITALS: BP 126/67; PULSE 98; RESP 18; TEMP 98.6
[2023-04-18] MEDS ORDERED: HYDROCODONE/ACETAMINOPHEN 5-325 MG TABLET PO ONE (22:00)
[2023-04-18] MEDS ORDERED: IBUP-1506 PO (22:08)
[2023-04-18] MEDS ORDERED: PERCT PO (22:08)
== END 2023-04-18 22:30 | disposition left against medical advice (07) ==
LOC: EMS 16:29
DX: M25.512 Pain in left shoulder (principal); F31.9 Bipolar disorder, unspecified; E11.9 Type 2 diabetes mellitus without complications; I10 Essential (primary) hypertension; F20.9 Schizophrenia, unspecified; F15.90 Other stimulant use, unspecified, uncomplicated; Z98.890 Other specified postprocedural states; Z59.00 Homelessness unspecified
CPT/HCPCS: 99282; 99283

== ENCOUNTER 2023-04-22 18:10 | Emergency (ER) | payer MEDICARE, MEDICAID ==
[~2023-04-22] VITALS: Ht 182.9 cm; Wt 68.2 kg
[~2023-04-22 18:10] MED LIST changes: +IBUP-1506 PO; +PERCT PO
[2023-04-22 18:15] VITALS: BP 138/74; PULSE 98; RESP 18; TEMP 98.5
[2023-04-22] MEDS ORDERED: IBUP-1554 PO (18:44)
== END 2023-04-22 19:55 | disposition home or self-care (01) ==
LOC: EMS 18:11
DX: M25.512 Pain in left shoulder (principal); F25.0 Schizoaffective disorder, bipolar type; E11.9 Type 2 diabetes mellitus without complications; I10 Essential (primary) hypertension; F15.90 Other stimulant use, unspecified, uncomplicated; Z59.00 Homelessness unspecified; Z98.890 Other specified postprocedural states; Z88.0 Allergy status to penicillin; Z88.8 Allergy status to other drugs, medicaments and biological substances
CPT/HCPCS: 29240; 99282; Z7502

== ENCOUNTER 2023-04-23 14:47 | Emergency (ER) | payer MEDICARE, MEDICAID ==
[~2023-04-23] VITALS: Ht 177.8 cm; Wt 68.2 kg
[~2023-04-23 14:47] MED LIST changes: +IBUP-1554 PO
[2023-04-23 14:53] VITALS: BP 115/97; PULSE 76; RESP 18; TEMP 98.2
== END 2023-04-23 15:21 | disposition left against medical advice (07) ==
LOC: EMS 14:47
DX: M25.512 Pain in left shoulder (principal); Z53.21 Procedure and treatment not carried out due to patient leaving prior to being seen by health care provider
CPT/HCPCS: 99281; Z7502

== ENCOUNTER 2023-05-05 17:25 | Emergency (ER) | payer MEDICARE, MEDICAID ==
[~2023-05-05] VITALS: Ht 188 cm; Wt 68.2 kg
[~2023-05-05 17:25] MED LIST changes: -IBUP-1506 PO
[2023-05-05 17:41] VITALS: BP 123/67; PULSE 77; RESP 18; TEMP 98.6
== END 2023-05-06 00:12 | disposition left against medical advice (07) ==
LOC: EMS 17:25
DX: M25.512 Pain in left shoulder (principal); Z53.21 Procedure and treatment not carried out due to patient leaving prior to being seen by health care provider

== ENCOUNTER 2023-05-18 16:38 | Emergency (ER) | payer MEDICARE, MEDICAID ==
[~2023-05-18] VITALS: Ht 190.5 cm; Wt 79.0 kg
[2023-05-18 17:17] VITALS: TEMP 98.4
[2023-05-18 17:20] VITALS: BP 152/89; PULSE 83; RESP 16
== END 2023-05-18 17:44 | disposition home or self-care (01) ==
LOC: EMS 16:39
DX: T59.3X3A Toxic effect of lacrimogenic gas, assault, initial encounter (principal); H10.9 Unspecified conjunctivitis; F31.9 Bipolar disorder, unspecified; E11.9 Type 2 diabetes mellitus without complications; I10 Essential (primary) hypertension; F20.9 Schizophrenia, unspecified; F15.90 Other stimulant use, unspecified, uncomplicated; Z98.890 Other specified postprocedural states; Z59.00 Homelessness unspecified; Z88.0 Allergy status to penicillin; Z88.8 Allergy status to other drugs, medicaments and biological substances
CPT/HCPCS: 99281; Z7502

== ENCOUNTER 2023-05-22 12:26 | Emergency (ER) | payer MEDICARE, MEDICAID ==
[~2023-05-22] VITALS: Ht 182.9 cm; Wt 72.7 kg
[2023-05-22 12:31] VITALS: BP 125/75; PULSE 100; RESP 16; TEMP 98.5
== END 2023-05-22 14:15 | disposition left against medical advice (07) ==
LOC: EMS 12:29
DX: R51.9 Headache, unspecified (principal); Z53.21 Procedure and treatment not carried out due to patient leaving prior to being seen by health care provider
CPT/HCPCS: 99281; Z7502

== ENCOUNTER 2023-05-28 07:37 | Emergency (ER) | payer MEDICARE, MEDICAID ==
[~2023-05-28] VITALS: Ht 182.9 cm; Wt 77.3 kg
[2023-05-28 07:41] VITALS: BP 116/66; PULSE 92; RESP 18; TEMP 98.1
== END 2023-05-28 09:07 | disposition home or self-care (01) ==
LOC: EMS 07:37
DX: S60.444A External constriction of right ring finger, initial encounter (principal); F31.9 Bipolar disorder, unspecified; E11.9 Type 2 diabetes mellitus without complications; I10 Essential (primary) hypertension; F20.9 Schizophrenia, unspecified; F15.90 Other stimulant use, unspecified, uncomplicated; Z59.00 Homelessness unspecified; Z98.890 Other specified postprocedural states; Z88.0 Allergy status to penicillin; Z88.8 Allergy status to other drugs, medicaments and biological substances; W49.04XA Ring or other jewelry causing external constriction, initial encounter; Y93.89 Activity, other specified; Y92.89 Other specified places as the place of occurrence of the external cause; Y99.8 Other external cause status
CPT/HCPCS: 99281; Z7502

== ENCOUNTER 2023-05-31 13:10 | Emergency (ER) | payer MEDICARE, MEDICAID ==
[~2023-05-31] VITALS: Ht 182.9 cm; Wt 69.5 kg
[2023-05-31 14:13] VITALS: TEMP 98.5
[2023-05-31 14:26] LABS: GLUCOMETER DEV NAME(LOC) ERT.5; GLUCOSE,POINT OF CARE 95 MG/DL (70-110)
[2023-05-31 14:45] LABS: BASOPHILS % (AUTO) 1.1 % (0.0-2.0); HEMATOCRIT 40.3 % (41-53); HEMOGLOBIN 13.4 g/dL (13.5-17.5); LYMPHOCYTES # (AUTO) 1.9 K/uL (1.0-4.8); MEAN CORPUSCULAR HEMOGLOBIN 29.5 pg (26.0-34.0); MEAN CORPUSCULAR HGB CONC 33.2 G/dL (31.0-37.0); MEAN CORPUSCULAR VOLUME 89 fL (80-100); MONOCYTES # (AUTO) 0.6 K/uL (0.1-1.0); MONOCYTES % (AUTO) 6.8 % (2.0-9.0); NEUTROPHILS # (AUTO) 5.4 K/uL (1.8-7.7); NEUTROPHILS % (AUTO) 66.1 % (40.0-70.0); PLATELET COUNT (AUTO) 348 K/uL (150-450); RED BLOOD CELL COUNT(AUTO) 4.53 MIL/uL (4.50-5.90); RED CELL DISTRIBUTION WIDTH 14.6 % (11.5-14.5); WHITE BLOOD COUNT (AUTO) 8.1 K/uL (4.5-11.0)
[2023-05-31 15:04] LABS: ANION GAP 7 mmol/L (8-16); CALCIUM, TOTAL 8.6 mg/dL (8.8-10.5); CARBON DIOXIDE 26 mmol/L (22-29); CHLORIDE 105 mmol/L (98-107); CREATININE 0.79 mg/dL (0.60-1.30); GLOMERULAR FILTR. RATE CALC > 60 mL/min (>60); GLUCOSE,RANDOM 113 mg/dL (70-110); POTASSIUM 3.8 mmol/L (3.5-5.1); SODIUM SERUM 138 mmol/L (136-145); UREA NITROGEN, BLOOD 16 mg/dL (7-18)
[2023-05-31 15:22] LABS: ALANINE AMINOTRANSFERASE 45 U/L (12-78); ALBUMIN 3.3 g/dL (3.4-5.0); ALKALINE PHOSPHATASE 113 U/L (46-116); ASPARTATE AMINOTRANSFERASE 18 U/L (15-37); BILIRUBIN,TOTAL 0.3 mg/dL (0.1-1.0); CREATINE KINASE, TOTAL ONLY 178 U/L (39-308); TOTAL PROTEIN, SERUM 7.1 g/dL (6.4-8.2)
[2023-05-31 15:45] VITALS: BP 127/85; PULSE 71; RESP 17
== END 2023-05-31 16:03 | disposition home or self-care (01) ==
LOC: EMS 13:10
DX: T67.5XXA Heat exhaustion, unspecified, initial encounter (principal); F25.0 Schizoaffective disorder, bipolar type; E11.9 Type 2 diabetes mellitus without complications; I10 Essential (primary) hypertension; F15.90 Other stimulant use, unspecified, uncomplicated; Z59.00 Homelessness unspecified; Z98.890 Other specified postprocedural states; Z88.0 Allergy status to penicillin; Z88.8 Allergy status to other drugs, medicaments and biological substances; X58.XXXA Exposure to other specified factors, initial encounter; Y93.89 Activity, other specified; Y92.89 Other specified places as the place of occurrence of the external cause; Y99.8 Other external cause status
CPT/HCPCS: 80053; 82550; 82962; 85025; 99282; 99283

== ENCOUNTER 2023-06-07 19:42 | Emergency (ER) | payer MEDICARE, MEDICAID ==
[~2023-06-07] VITALS: Ht 182.9 cm; Wt 83.2 kg
[2023-06-07 20:10] VITALS: BP 15/71; PULSE 88; RESP 16; TEMP 98.2
== END 2023-06-07 21:07 | disposition left against medical advice (07) ==
LOC: EMS 19:44
DX: G89.29 Other chronic pain (principal); M25.571 Pain in right ankle and joints of right foot; Z53.21 Procedure and treatment not carried out due to patient leaving prior to being seen by health care provider

== ENCOUNTER 2023-07-06 16:04 | Emergency (ER) | payer MEDICARE, MEDICAID ==
[~2023-07-06] VITALS: Ht 184.2 cm; Wt 65.9 kg
[2023-07-06 16:31] VITALS: TEMP 97.6
[2023-07-06 17:05] VITALS: BP 132/90; PULSE 88; RESP 16
== END 2023-07-06 17:29 | disposition home or self-care (01) ==
LOC: EMS 16:06
DX: S90.822A Blister (nonthermal), left foot, initial encounter (principal); S90.821A Blister (nonthermal), right foot, initial encounter; F25.0 Schizoaffective disorder, bipolar type; E11.9 Type 2 diabetes mellitus without complications; I10 Essential (primary) hypertension; F15.90 Other stimulant use, unspecified, uncomplicated; Z59.00 Homelessness unspecified; Z98.890 Other specified postprocedural states; Z88.0 Allergy status to penicillin; Z88.8 Allergy status to other drugs, medicaments and biological substances; X58.XXXA Exposure to other specified factors, initial encounter; Y93.89 Activity, other specified; Y92.89 Other specified places as the place of occurrence of the external cause; Y99.8 Other external cause status
CPT/HCPCS: 82962; 99281; 99282

== ENCOUNTER 2023-07-16 08:20 | Emergency (ER) | payer MEDICARE, MEDICAID ==
[~2023-07-16] VITALS: Ht 185.4 cm; Wt 68.2 kg
[2023-07-16 08:27] VITALS: BP 133/80; PULSE 84; RESP 18; TEMP 98.2
[2023-07-16] MEDS ORDERED: BACITRACIN 28 GM OINTMENT TP ONE (08:45)
[2023-07-16] MEDS ORDERED: BACI28.410 TP (08:46)
== END 2023-07-16 11:24 | disposition home or self-care (01) ==
LOC: EMS 08:20
DX: S90.912A Unspecified superficial injury of left ankle, initial encounter (principal); F31.9 Bipolar disorder, unspecified; E11.9 Type 2 diabetes mellitus without complications; I10 Essential (primary) hypertension; F20.9 Schizophrenia, unspecified; F15.90 Other stimulant use, unspecified, uncomplicated; Z98.890 Other specified postprocedural states; Z59.00 Homelessness unspecified; Z88.0 Allergy status to penicillin; Z88.8 Allergy status to other drugs, medicaments and biological substances; X58.XXXA Exposure to other specified factors, initial encounter; Y93.89 Activity, other specified; Y92.89 Other specified places as the place of occurrence of the external cause; Y99.8 Other external cause status
CPT/HCPCS: 82948; 99282; Z7502; Z7610

== ENCOUNTER 2023-07-30 07:04 | Emergency (ER) | payer MEDICARE, MEDICAID ==
[~2023-07-30] VITALS: Ht 180.3 cm; Wt 68.2 kg
[~2023-07-30 07:04] MED LIST changes: +BACI28.410 TP; -BREX3TAB PO; -IBUP-1554 PO; -OLAN5TAB94 PO; -PERCT PO; -RISP1TAB48 PO
[2023-07-30 07:23] VITALS: BP 125/95; PULSE 120; RESP 18; TEMP 98.8
== END 2023-07-30 07:35 | disposition left against medical advice (07) ==
LOC: EMS 07:07
DX: Z02.6 Encounter for examination for insurance purposes (principal); Z53.21 Procedure and treatment not carried out due to patient leaving prior to being seen by health care provider
CPT/HCPCS: 99281; Z7502

== ENCOUNTER 2023-08-22 04:26 | Emergency (ER) | payer MEDICARE, MEDICAID | END 2023-08-22 04:44 | disposition left against medical advice (07) | LOC: EMS 04:26 | DX: Z53.21 Procedure and treatment not carried out due to patient leaving prior to being seen by health care provider (principal) ==

== ENCOUNTER 2023-09-30 16:07 | Emergency (ER) | payer MEDICARE, MEDICAID ==
[~2023-09-30] VITALS: Ht 185.4 cm; Wt 81.8 kg
[2023-09-30 16:21] VITALS: TEMP 98.7
[2023-09-30 16:38] VITALS: BP 114/57; PULSE 64; RESP 16
== END 2023-09-30 16:48 | disposition left against medical advice (07) ==
LOC: EMS 16:08
DX: Z53.21 Procedure and treatment not carried out due to patient leaving prior to being seen by health care provider (principal)
CPT/HCPCS: 99281; Z7502

== ENCOUNTER 2023-11-01 17:23 | Emergency (ER) | payer MEDICARE, MEDICAID | END 2023-11-01 17:35 | disposition left against medical advice (07) | LOC: EMS 17:26 | DX: Z53.21 Procedure and treatment not carried out due to patient leaving prior to being seen by health care provider (principal) ==

== ENCOUNTER 2024-06-04 03:51 | Emergency (ER) | payer MEDICARE, MEDICAID ==
[~2024-06-04] VITALS: Ht 175.3 cm; Wt 70.5 kg
[2024-06-04 03:55] VITALS: TEMP 98
[2024-06-04 06:03] LABS: BASOPHILS % (AUTO) 1.4 % (0.0-2.0); EOSINOPHILS % (AUTO) 3.1 % (1.0-6.0); HEMATOCRIT 41.7 % (41-53); HEMOGLOBIN 14.2 g/dL (13.5-17.5); LYMPHOCYTES % (AUTO) 23.4 % (22.0-44.0); MEAN CORPUSCULAR HEMOGLOBIN 29.9 pg (26.0-34.0); MEAN CORPUSCULAR VOLUME 88 fL (80-100); MONOCYTES # (AUTO) 0.7 K/uL (0.1-1.0); MONOCYTES % (AUTO) 8.1 % (2.0-9.0); NEUTROPHILS # (AUTO) 5.4 K/uL (1.8-7.7); PLATELET COUNT (AUTO) 274 K/uL (150-450); RED BLOOD CELL COUNT(AUTO) 4.73 MIL/uL (4.50-5.90); RED CELL DISTRIBUTION WIDTH 14.8 % (11.5-14.5); WHITE BLOOD COUNT (AUTO) 8.4 K/uL (4.5-11.0)
[2024-06-04 06:14] LABS: ANION GAP 6 mmol/L (8-16); CALCIUM, TOTAL 8.9 mg/dL (8.8-10.5); CARBON DIOXIDE 31 mmol/L (22-29); CHLORIDE 102 mmol/L (98-107); CREATININE 0.91 mg/dL (0.60-1.30); GLOMERULAR FILTR. RATE CALC > 60 mL/min (>60); GLUCOSE,RANDOM 88 mg/dL (70-110); SODIUM SERUM 139 mmol/L (136-145); UREA NITROGEN, BLOOD 18 mg/dL (7-18)
[2024-06-04 06:20] LABS: ALANINE AMINOTRANSFERASE 41 U/L (12-78); ALBUMIN 3.5 g/dL (3.4-5.0); ALKALINE PHOSPHATASE 86 U/L (46-116); ASPARTATE AMINOTRANSFERASE 22 U/L (15-37); BILIRUBIN,TOTAL 0.2 mg/dL (0.1-1.0); LIPASE 48 U/L (16-77)
[2024-06-04 06:21] LABS: TROPONIN I-HIGH SENSITIVITY Less Than 4 ng/L (<76)
[2024-06-04 07:21] VITALS: BP 118/78; PULSE 92; RESP 18; O2SAT 98
[2024-06-04 07:55] LABS: APPEARANCE,URINE CLEAR (CLEAR); BILIRUBIN,URINE NEGATIVE (NEGATIVE); COLOR,URINE YELLOW (YELLOW); GLUCOSE, URINE (UA) NEGATIVE (NEGATIVE); KETONES,URINE NEGATIVE (NEGATIVE); LEUKOCYTE ESTERASE ,URINE NEGATIVE (NEGATIVE); NITRATE,URINE NEGATIVE (NEGATIVE); OCCULT BLOOD,URINE NEGATIVE (NEGATIVE); PROTEIN,URINE TRACE mg/dL (NEGATIVE); SPECIFIC GRAVITIY, URINE 1.029 (1.003-1.030); UROBILINOGEN,URINE <=1.0 mg/dL (<=1.0)
[2024-06-04 08:08] LABS: ALCOHOL, URINE DRUG SCREEN NEGATIVE (NEGATIVE); AMPHET/METH SCREEN,URINE POSITIVE (NEGATIVE); BARBITURATE SCREEN, URINE NEGATIVE (NEGATIVE); BENZODIAZEPINES SCREEN,URINE NEGATIVE (NEGATIVE); CANNABINOID SCREEN,URINE NEGATIVE (NEGATIVE); COCAINE SCREEN,URINE NEGATIVE (NEGATIVE); METHADONE SCREEN, URINE NEGATIVE (NEGATIVE); OPIATE SCREEN,URINE NEGATIVE (NEGATIVE); PHENCYCLIDINE SCREEN,URINE NEGATIVE (NEGATIVE)
== END 2024-06-04 08:33 | disposition home or self-care (01) ==
LOC: EMS 03:51
DX: F31.9 Bipolar disorder, unspecified (principal); E11.9 Type 2 diabetes mellitus without complications; I10 Essential (primary) hypertension; F20.9 Schizophrenia, unspecified; F15.90 Other stimulant use, unspecified, uncomplicated; Z59.00 Homelessness unspecified; Z98.890 Other specified postprocedural states; Z88.0 Allergy status to penicillin; Z88.8 Allergy status to other drugs, medicaments and biological substances
CPT/HCPCS: 80048; 80076; 80307; 81003; 83690; 84484; 85025; 93005; 99284

== ENCOUNTER 2024-06-19 15:15 | Emergency (ER) | payer MEDICARE, MEDICAID | END 2024-06-19 17:25 | disposition left against medical advice (07) | LOC: EMS 15:15 | DX: M79.675 Pain in left toe(s) (principal); Z53.21 Procedure and treatment not carried out due to patient leaving prior to being seen by health care provider ==

== ENCOUNTER 2024-07-18 00:36 | Emergency (ER) | payer MEDICARE, MEDICAID ==
[~2024-07-18] VITALS: Ht 175.3 cm; Wt 65.5 kg
[2024-07-18 00:41] VITALS: BP 117/84; PULSE 97; RESP 18; TEMP 98.7; O2SAT 97
[2024-07-18 03:23] LABS: EOSINOPHILS % (AUTO) 3.5 % (1.0-6.0); HEMATOCRIT 41.2 % (41-53); HEMOGLOBIN 13.7 g/dL (13.5-17.5); LYMPHOCYTES # (AUTO) 1.7 K/uL (1.0-4.8); LYMPHOCYTES % (AUTO) 25.6 % (22.0-44.0); MEAN CORPUSCULAR HEMOGLOBIN 29.4 pg (26.0-34.0); MEAN CORPUSCULAR HGB CONC 33.3 G/dL (31.0-37.0); MEAN CORPUSCULAR VOLUME 88 fL (80-100); MONOCYTES # (AUTO) 0.5 K/uL (0.1-1.0); MONOCYTES % (AUTO) 7.5 % (2.0-9.0); NEUTROPHILS # (AUTO) 4.2 K/uL (1.8-7.7); NEUTROPHILS % (AUTO) 62.4 % (40.0-70.0); PLATELET COUNT (AUTO) 286 K/uL (150-450); RED BLOOD CELL COUNT(AUTO) 4.67 MIL/uL (4.50-5.90); RED CELL DISTRIBUTION WIDTH 14.6 % (11.5-14.5); WHITE BLOOD COUNT (AUTO) 6.7 K/uL (4.5-11.0)
[2024-07-18 03:32] LABS: ANION GAP 4 mmol/L (8-16); CALCIUM, TOTAL 7.9 mg/dL (8.8-10.5); CARBON DIOXIDE 33 mmol/L (22-29); CHLORIDE 103 mmol/L (98-107); CREATININE 0.96 mg/dL (0.60-1.30); GLOMERULAR FILTR. RATE CALC > 60 mL/min (>60); GLUCOSE,RANDOM 74 mg/dL (70-110); POTASSIUM 3.8 mmol/L (3.5-5.1); SODIUM SERUM 140 mmol/L (136-145); UREA NITROGEN, BLOOD 18 mg/dL (7-18)
[2024-07-18 03:55] LABS: LIPASE 332 U/L (16-77)
[2024-07-18 04:31] LABS: ALANINE AMINOTRANSFERASE 20 U/L (12-78); ALBUMIN 3.1 g/dL (3.4-5.0); ALKALINE PHOSPHATASE 73 U/L (46-116); ASPARTATE AMINOTRANSFERASE 21 U/L (15-37); BILIRUBIN,TOTAL 0.2 mg/dL (0.1-1.0); TOTAL PROTEIN, SERUM 6.7 g/dL (6.4-8.2)
[2024-07-18] MEDS: TraMADol HCL 50 MG TABLET PO ONE (04:52)
== END 2024-07-18 05:05 | disposition home or self-care (01) ==
LOC: EMS 00:36
DX: K40.90 Unilateral inguinal hernia, without obstruction or gangrene, not specified as recurrent (principal); E11.9 Type 2 diabetes mellitus without complications; I10 Essential (primary) hypertension; F15.10 Other stimulant abuse, uncomplicated; F20.9 Schizophrenia, unspecified; F31.9 Bipolar disorder, unspecified; Z88.0 Allergy status to penicillin; Z88.8 Allergy status to other drugs, medicaments and biological substances; Z59.00 Homelessness unspecified
CPT/HCPCS: 99284; 74176; 80048; 80076; 83690; 85025; 36415; 82962; G0480

== ENCOUNTER 2024-07-22 08:00 | Emergency (ER) | payer MEDICARE, MEDICAID ==
[~2024-07-22] VITALS: Ht 177.8 cm; Wt 69.1 kg
[2024-07-22 08:23] VITALS: BP 130/87; PULSE 101; RESP 14; TEMP 97.7; O2SAT 98
[2024-07-22 08:32] LABS: COVID AG,FIA SOURCE NASAL SWAB
[2024-07-22] MEDS: BENZONATATE 100 MG CAPSULE PO ONE (09:02)
[2024-07-22 09:17] LABS: SARS-COV2 (COVID) ANTIGEN,FIA Negative (Negative)
[2024-07-22 09:18] LABS: INFLUENZA TYPE A NEGATIVE FOR TYPE A (NEGATIVE); INFLUENZA TYPE B NEGATIVE FOR TYPE B (NEGATIVE)
== END 2024-07-22 10:25 | disposition home or self-care (01) ==
LOC: EMS 08:00
DX: J06.9 Acute upper respiratory infection, unspecified (principal); B97.89 Other viral agents as the cause of diseases classified elsewhere; I10 Essential (primary) hypertension; E11.9 Type 2 diabetes mellitus without complications; F20.9 Schizophrenia, unspecified; F31.9 Bipolar disorder, unspecified; Z88.0 Allergy status to penicillin; Z88.8 Allergy status to other drugs, medicaments and biological substances; Z59.00 Homelessness unspecified; Z20.822 Contact with and (suspected) exposure to COVID-19
CPT/HCPCS: 87804; 99282; Z7502; Z7610

== ENCOUNTER 2024-08-06 06:22 | Emergency (ER) | payer MEDICARE, MEDICAID | END 2024-08-06 06:54 | disposition left against medical advice (07) | LOC: EMS 06:23 | DX: Z53.21 Procedure and treatment not carried out due to patient leaving prior to being seen by health care provider (principal) ==

== ENCOUNTER 2024-08-06 11:28 | Emergency (ER) | payer MEDICARE, MEDICAID | END 2024-08-06 12:25 | disposition left against medical advice (07) | LOC: EMS 11:28 | DX: R07.9 Chest pain, unspecified (principal); Z53.21 Procedure and treatment not carried out due to patient leaving prior to being seen by health care provider ==

== ENCOUNTER 2024-08-12 11:04 | Emergency (ER) | payer MEDICARE, MEDICAID ==
[~2024-08-12] VITALS: Ht 175.3 cm; Wt 65.0 kg
[2024-08-12] MEDS: OLANZapine 5 MG RAPDIS TABLET PO ONE (11:48)
[2024-08-12 12:21] LABS: BASOPHILS % (AUTO) 0.9 % (0.0-2.0); EOSINOPHILS % (AUTO) 1.6 % (1.0-6.0); HEMATOCRIT 42.4 % (41-53); LYMPHOCYTES # (AUTO) 1.8 K/uL (1.0-4.8); LYMPHOCYTES % (AUTO) 13.5 % (22.0-44.0); MEAN CORPUSCULAR HEMOGLOBIN 29.1 pg (26.0-34.0); MEAN CORPUSCULAR HGB CONC 33.1 G/dL (31.0-37.0); MEAN CORPUSCULAR VOLUME 88 fL (80-100); MONOCYTES # (AUTO) 0.8 K/uL (0.1-1.0); MONOCYTES % (AUTO) 5.7 % (2.0-9.0); NEUTROPHILS # (AUTO) 10.3 K/uL (1.8-7.7); NEUTROPHILS % (AUTO) 78.3 % (40.0-70.0); PLATELET COUNT (AUTO) 305 K/uL (150-450); RED BLOOD CELL COUNT(AUTO) 4.82 MIL/uL (4.50-5.90); WHITE BLOOD COUNT (AUTO) 13.1 K/uL (4.5-11.0)
[2024-08-12 12:24] LABS: ANION GAP 8 mmol/L (8-16); CALCIUM, TOTAL 9.1 mg/dL (8.8-10.5); CARBON DIOXIDE 29 mmol/L (22-29); CHLORIDE 99 mmol/L (98-107); CREATININE 1.04 mg/dL (0.60-1.30); GLOMERULAR FILTR. RATE CALC > 60 mL/min (>60); GLUCOSE,RANDOM 162 mg/dL (70-110); POTASSIUM 3.6 mmol/L (3.5-5.1); SODIUM SERUM 136 mmol/L (136-145); UREA NITROGEN, BLOOD 25 mg/dL (7-18)
[2024-08-12 12:28] LABS: ALCOHOL, BLOOD (SERUM) < 3 mg/dL (0-10)
[2024-08-12 15:09] VITALS: BP 116/61; PULSE 79; RESP 14; TEMP 98.1; O2SAT 99
== END 2024-08-12 16:21 | disposition home or self-care (01) ==
LOC: EMS 11:04
DX: L29.9 Pruritus, unspecified (principal); F15.90 Other stimulant use, unspecified, uncomplicated; E11.9 Type 2 diabetes mellitus without complications; F20.9 Schizophrenia, unspecified; F31.9 Bipolar disorder, unspecified; I10 Essential (primary) hypertension; F17.210 Nicotine dependence, cigarettes, uncomplicated; F14.90 Cocaine use, unspecified, uncomplicated; Z59.00 Homelessness unspecified; Z88.0 Allergy status to penicillin; Z98.890 Other specified postprocedural states
CPT/HCPCS: 99283; 80048; 82962; 85025; 36415; G0480

== ENCOUNTER 2024-09-02 01:02 | Emergency (ER) | payer MEDICARE, MEDICAID | END 2024-09-02 03:26 | disposition left against medical advice (07) | LOC: EMS 01:02 | DX: Z53.21 Procedure and treatment not carried out due to patient leaving prior to being seen by health care provider (principal) ==

== ENCOUNTER 2024-09-09 07:36 | Emergency (ER) | payer MEDICARE, MEDICAID ==
[~2024-09-09] VITALS: Ht 175.3 cm; Wt 70.5 kg
[2024-09-09 07:41] VITALS: BP 133/88; PULSE 74; RESP 18; TEMP 98.5; O2SAT 97
== END 2024-09-09 08:00 | disposition home or self-care (01) ==
LOC: EMS 07:39
DX: F15.90 Other stimulant use, unspecified, uncomplicated (principal); F20.9 Schizophrenia, unspecified; F31.9 Bipolar disorder, unspecified; E11.9 Type 2 diabetes mellitus without complications; I10 Essential (primary) hypertension; F17.210 Nicotine dependence, cigarettes, uncomplicated; F14.90 Cocaine use, unspecified, uncomplicated; Z88.0 Allergy status to penicillin; Z59.00 Homelessness unspecified
CPT/HCPCS: 82962; 99281

== ENCOUNTER 2024-09-13 08:21 | Emergency (ER) | payer MEDICARE, MEDICAID ==
[~2024-09-13] VITALS: Ht 175.3 cm; Wt 72.7 kg
[2024-09-13 08:27] VITALS: TEMP 98.6
[2024-09-13] MEDS: ONDANSETRON 4 MG RAPDIS TABLET PO ONE (11:08)
[2024-09-13 11:10] VITALS: BP 126/82; PULSE 90; RESP 18; O2SAT 98
== END 2024-09-13 11:37 | disposition home or self-care (01) ==
LOC: EMS 08:21
DX: R11.0 Nausea (principal); F19.10 Other psychoactive substance abuse, uncomplicated; E11.9 Type 2 diabetes mellitus without complications; I10 Essential (primary) hypertension; F20.9 Schizophrenia, unspecified; F31.9 Bipolar disorder, unspecified; F17.200 Nicotine dependence, unspecified, uncomplicated; F15.90 Other stimulant use, unspecified, uncomplicated; F14.90 Cocaine use, unspecified, uncomplicated; Z88.0 Allergy status to penicillin; Z59.00 Homelessness unspecified
CPT/HCPCS: 99283; 99406

== ENCOUNTER 2024-09-18 18:28 | Emergency (ER) | payer MEDICARE, MEDICAID ==
[~2024-09-18] VITALS: Ht 177.8 cm; Wt 66.4 kg
[2024-09-18 18:40] VITALS: BP 136/76; PULSE 97; RESP 20; TEMP 98.3; O2SAT 99
[2024-09-18 19:04] LABS: EOSINOPHILS % (AUTO) 3.7 % (1.0-6.0); HEMATOCRIT 40.1 % (41-53); HEMOGLOBIN 13.2 g/dL (13.5-17.5); LYMPHOCYTES # (AUTO) 1.9 K/uL (1.0-4.8); LYMPHOCYTES % (AUTO) 26.7 % (22.0-44.0); MEAN CORPUSCULAR HEMOGLOBIN 29.6 pg (26.0-34.0); MEAN CORPUSCULAR VOLUME 90 fL (80-100); MONOCYTES # (AUTO) 0.4 K/uL (0.1-1.0); MONOCYTES % (AUTO) 6.2 % (2.0-9.0); NEUTROPHILS # (AUTO) 4.5 K/uL (1.8-7.7); NEUTROPHILS % (AUTO) 62.4 % (40.0-70.0); PLATELET COUNT (AUTO) 293 K/uL (150-450); RED BLOOD CELL COUNT(AUTO) 4.48 MIL/uL (4.50-5.90); RED CELL DISTRIBUTION WIDTH 15.1 % (11.5-14.5); WHITE BLOOD COUNT (AUTO) 7.2 K/uL (4.5-11.0)
[2024-09-18 19:13] LABS: ANION GAP 5 mmol/L (8-16); CALCIUM, TOTAL 8.4 mg/dL (8.8-10.5); CARBON DIOXIDE 30 mmol/L (22-29); CHLORIDE 104 mmol/L (98-107); CREATININE 1.07 mg/dL (0.60-1.30); GLOMERULAR FILTR. RATE CALC > 60 mL/min (>60); GLUCOSE,RANDOM 90 mg/dL (70-110); SODIUM SERUM 139 mmol/L (136-145); UREA NITROGEN, BLOOD 20 mg/dL (7-18)
[2024-09-18 19:20] LABS: ALCOHOL, BLOOD (SERUM) < 3 mg/dL (0-10)
[2024-09-18 21:49] LABS: APPEARANCE,URINE CLEAR (CLEAR); BILIRUBIN,URINE NEGATIVE (NEGATIVE); COLOR,URINE LIGHT YELLOW (YELLOW); GLUCOSE, URINE (UA) NEGATIVE (NEGATIVE); KETONES,URINE NEGATIVE (NEGATIVE); LEUKOCYTE ESTERASE ,URINE NEGATIVE (NEGATIVE); NITRATE,URINE NEGATIVE (NEGATIVE); OCCULT BLOOD,URINE NEGATIVE (NEGATIVE); PH,URINE 5.5 (5.0-8.0); PH,URINE DRUG SCREEN 5.5 (5.0-8.0); PROTEIN,URINE NEGATIVE (NEGATIVE); SPECIFIC GRAVITIY, URINE 1.029 (1.003-1.030); UROBILINOGEN,URINE <=1.0 mg/dL (<=1.0)
[2024-09-18 22:01] LABS: ALCOHOL, URINE DRUG SCREEN NEGATIVE (NEGATIVE); AMPHET/METH SCREEN,URINE POSITIVE (NEGATIVE); BARBITURATE SCREEN, URINE NEGATIVE (NEGATIVE); BENZODIAZEPINES SCREEN,URINE NEGATIVE (NEGATIVE); CANNABINOID SCREEN,URINE NEGATIVE (NEGATIVE); COCAINE SCREEN,URINE NEGATIVE (NEGATIVE); METHADONE SCREEN, URINE NEGATIVE (NEGATIVE); OPIATE SCREEN,URINE NEGATIVE (NEGATIVE); PHENCYCLIDINE SCREEN,URINE NEGATIVE (NEGATIVE)
[2024-09-18 22:11] LABS: COVID AG,FIA SOURCE NASAL SWAB
[2024-09-18 22:31] LABS: SARS-COV2 (COVID) ANTIGEN,FIA Negative (Negative)
== END 2024-09-18 23:36 | disposition home or self-care (01) ==
LOC: EMS 18:28
DX: R44.3 Hallucinations, unspecified (principal); F15.90 Other stimulant use, unspecified, uncomplicated; I10 Essential (primary) hypertension; F31.9 Bipolar disorder, unspecified; F17.210 Nicotine dependence, cigarettes, uncomplicated; Z88.0 Allergy status to penicillin; Z59.00 Homelessness unspecified; Z20.822 Contact with and (suspected) exposure to COVID-19
CPT/HCPCS: 99282; 87426; 80048; 85025; 36415; 80307; 81003; G0480

== ENCOUNTER 2024-09-20 05:21 | Emergency (ER) | payer MEDICARE, MEDICAID ==
[~2024-09-20] VITALS: Ht 177.8 cm; Wt 66.4 kg
[2024-09-20 05:29] VITALS: TEMP 97.9
[2024-09-20] MEDS ORDERED: OLAN5TAB94 PO (07:29)
[2024-09-20] MEDS: OLANZapine 5 MG TABLET PO ONE (07:36)
[2024-09-20 07:38] VITALS: BP 118/76; PULSE 85; RESP 16; O2SAT 99
== END 2024-09-20 07:50 | disposition home or self-care (01) ==
LOC: EMS 05:25
DX: F25.9 Schizoaffective disorder, unspecified (principal); I10 Essential (primary) hypertension; F31.9 Bipolar disorder, unspecified; F17.210 Nicotine dependence, cigarettes, uncomplicated; F14.90 Cocaine use, unspecified, uncomplicated; F15.90 Other stimulant use, unspecified, uncomplicated; Z59.00 Homelessness unspecified; Z88.0 Allergy status to penicillin
CPT/HCPCS: 99283

== ENCOUNTER 2024-09-21 16:43 | Emergency (ER) | payer MEDICARE ==
[~2024-09-21] VITALS: Ht 180.3 cm; Wt 65.9 kg
[~2024-09-21 16:43] MED LIST changes: -BACI28.410 TP; +OLAN5TAB94 PO
[2024-09-21 16:52] VITALS: BP 108/80; PULSE 100; RESP 16; TEMP 98.4; O2SAT 98
[2024-09-21] MEDS ORDERED: OLANZapine 10 MG TABLET PO ONE (19:45)
== END 2024-09-21 20:11 | disposition home or self-care (01) ==
LOC: EMS 16:43
DX: F20.9 Schizophrenia, unspecified (principal); F31.9 Bipolar disorder, unspecified; F17.210 Nicotine dependence, cigarettes, uncomplicated; F14.90 Cocaine use, unspecified, uncomplicated; F15.90 Other stimulant use, unspecified, uncomplicated; I10 Essential (primary) hypertension; Z59.00 Homelessness unspecified; Z88.0 Allergy status to penicillin
CPT/HCPCS: 99284; 99406; Z7502

== ENCOUNTER 2024-09-30 05:23 | Inpatient (IN) | payer MEDICARE, MEDICAID ==
[~2024-09-30] VITALS: Ht 177.8 cm; Wt 68.6 kg
[2024-09-30 05:34] VITALS: O2SAT 100
[2024-09-30] MEDS: LORazepam 1 MG TABLET PO ONE (07:41)
[2024-09-30] MEDS: OLANZapine 5 MG TABLET PO ONE (07:41)
[2024-09-30 09:16] LABS: BASOPHILS % (AUTO) 0.8 % (0.0-2.0); EOSINOPHILS % (AUTO) 2.7 % (1.0-6.0); HEMATOCRIT 39.3 % (41-53); HEMOGLOBIN 13.4 g/dL (13.5-17.5); LYMPHOCYTES # (AUTO) 1.8 K/uL (1.0-4.8); LYMPHOCYTES % (AUTO) 20.2 % (22.0-44.0); MEAN CORPUSCULAR HGB CONC 34.1 G/dL (31.0-37.0); MEAN CORPUSCULAR VOLUME 88 fL (80-100); MONOCYTES # (AUTO) 0.5 K/uL (0.1-1.0); MONOCYTES % (AUTO) 5.7 % (2.0-9.0); NEUTROPHILS # (AUTO) 6.3 K/uL (1.8-7.7); NEUTROPHILS % (AUTO) 70.6 % (40.0-70.0); PLATELET COUNT (AUTO) 305 K/uL (150-450); RED BLOOD CELL COUNT(AUTO) 4.47 MIL/uL (4.50-5.90); RED CELL DISTRIBUTION WIDTH 14.8 % (11.5-14.5); WHITE BLOOD COUNT (AUTO) 8.9 K/uL (4.5-11.0)
[2024-09-30 09:24] LABS: ANION GAP 6 mmol/L (8-16); CALCIUM, TOTAL 8.1 mg/dL (8.8-10.5); CARBON DIOXIDE 30 mmol/L (22-29); CHLORIDE 102 mmol/L (98-107); CREATININE 0.87 mg/dL (0.60-1.30); GLOMERULAR FILTR. RATE CALC > 60 mL/min (>60); GLUCOSE,RANDOM 109 mg/dL (70-110); POTASSIUM 3.6 mmol/L (3.5-5.1); SODIUM SERUM 138 mmol/L (136-145); UREA NITROGEN, BLOOD 15 mg/dL (7-18)
[2024-09-30 09:41] LABS: ALCOHOL, BLOOD (SERUM) < 3 mg/dL (0-10)
[2024-09-30 09:44] LABS: COVID AG,FIA SOURCE NASAL SWAB
[2024-09-30 10:18] LABS: SARS-COV2 (COVID) ANTIGEN,FIA Negative (Negative)
[2024-09-30] MEDS ORDERED: LORazepam 2 MG TABLET PO PRN (11:30)
[2024-09-30] MEDS ORDERED: MAG HYDROX/ALUMINUM HYD/SIMETH ES 30 ML SUSPENSION UDCUP PO PRN ×2 (11:30→12:15)
[2024-09-30] MEDS ORDERED: MAGNESIUM HYDROXIDE SUSPENSION 30 ML UDCUP PO PRN ×2 (11:30→12:15)
[2024-09-30] MEDS ORDERED: ZOLPIDEM TARTRATE 10 MG TABLET PO PRN (11:30)
[2024-09-30] MEDS ORDERED: ACETAMINOPHEN 325 MG TABLET PO PRN ×2 (11:30→12:15)
[2024-09-30] MEDS ORDERED: LOPERAMIDE HCL 2 MG CAPSULE PO PRN ×2 (11:30→12:15)
[2024-09-30] MEDS: DiphenhydrAMINE HCL 25 MG CAPSULE PO ONE (11:33)
[2024-09-30] MEDS ORDERED: ONDANSETRON 4 MG TABLET PO PRN (12:15)
[2024-09-30] MEDS ORDERED: NICOTINE 14 MG/24 HOUR PATCH TD PRN (12:15)
[2024-09-30] MEDS ORDERED: CloNIDine HCL 0.1 MG TABLET PO PRN (12:15)
[2024-09-30] MEDS ORDERED: PETROLATUM,WHITE 28 GM JELLY TP PRN (12:15)
[2024-09-30] MEDS ORDERED: ALBUTEROL SULFATE HFA 90 MCG/PUFF 8 GM INHALER IH PRN (12:15)
[2024-09-30] MEDS ORDERED: GuaiFENesin/D-METHORPHAN [SUGAR-FREE] 200-20MG/10 ML SYRUP UDCUP PO PRN (12:15)
[2024-09-30] MEDS ORDERED: IBUPROFEN 400 MG TABLET PO PRN (12:15)
[2024-09-30] MEDS ORDERED: DOCUSATE SODIUM 100 MG CAPSULE PO PRN (12:15)
[2024-09-30 13:30] VITALS: BP 117/83; PULSE 64; RESP 16; TEMP 97.6; O2SAT 100
[2024-09-30] MEDS ORDERED: INFLUENZA VIRUS VACCINE TVS (6MO+) 2024-25/PF 45 MCG/0.5 ML SYRINGE IM. ONE (13:30)
[2024-09-30 20:00] VITALS: RESP 16
[2024-10-01 08:59] LABS: HEMOGLOBIN A1C 5.7 % (3.8-5.6)
[2024-10-01 09:05] VITALS: BP 117/74; PULSE 79; RESP 17; TEMP 98.3; O2SAT 95
[2024-10-01] MEDS ORDERED: OLANZapine 5 MG TABLET PO SCH (09:15)
[2024-10-01 09:19] LABS: CHOL/HDL RATIO 2.8 (4.2-7.3); THYROID STIMULATING HORMONE 0.48 uIU/mL (0.36-3.74)
[2024-10-01] MEDS: ARIPiprazole 10 MG TABLET PO SCH (09:45)
[2024-10-01 20:34] VITALS: RESP 18
[2024-10-02 08:00] VITALS: BP 132/89; PULSE 80; RESP 16; TEMP 98.1; O2SAT 99
[2024-10-02 20:00] VITALS: BP 135/96; PULSE 94; RESP 16; TEMP 97.5; O2SAT 96
[2024-10-03 08:51] VITALS: BP 104/74; PULSE 71; RESP 17; TEMP 97.3; O2SAT 100
[2024-10-04 10:37] VITALS: BP 150/103; PULSE 100; RESP 17; TEMP 98; O2SAT 100
[2024-10-04 20:13] VITALS: BP 111/58; PULSE 96; RESP 18; TEMP 97.9; O2SAT 97
[2024-10-05 08:12] VITALS: BP 132/85; PULSE 92; RESP 16; TEMP 97.5; O2SAT 96
[2024-10-06 09:31] VITALS: BP 131/79; PULSE 62; RESP 18; TEMP 98; O2SAT 100
[2024-10-06 20:00] VITALS: RESP 18
[2024-10-07 08:10] VITALS: BP 116/77; PULSE 91; RESP 15; TEMP 98; O2SAT 96
[2024-10-07 22:02] VITALS: RESP 18
[2024-10-08 08:42] VITALS: BP 128/94; PULSE 76; RESP 18; TEMP 97.7; O2SAT 95
[2024-10-08] MEDS: QUEtiapine FUMARATE 100 MG TABLET PO PRN (16:24)
[2024-10-08 20:57] VITALS: BP 119/76; PULSE 78; RESP 19; TEMP 97.4; O2SAT 99
[2024-10-09 08:52] VITALS: RESP 17
[2024-10-10 05:12] VITALS: RESP 18
[2024-10-10 08:05] VITALS: BP 115/83; PULSE 74; RESP 16; TEMP 97.9; O2SAT 100
[2024-10-10 20:12] VITALS: BP 100/62; PULSE 85; RESP 18; TEMP 97.5; O2SAT 99
[2024-10-11 08:11] VITALS: BP 118/85; PULSE 73; RESP 16; TEMP 99; O2SAT 99
[2024-10-11] MEDS ORDERED: DiphenhydrAMINE HCL 50 MG/ML VIAL ONE (13:58)
[2024-10-11] MEDS ORDERED: LORazepam 2 MG/ML VIAL ONE (13:58)
[2024-10-11] MEDS ORDERED: ChlorproMAZINE HCL 50 MG/2 ML AMP ONE (13:58)
[2024-10-11] MEDS: DiphenhydrAMINE HCL 50 MG/ML VIAL IM ONE (15:03)
[2024-10-11] MEDS: ChlorproMAZINE HCL 50 MG/2 ML AMP IM ONE (15:03)
[2024-10-11] MEDS: LORazepam 2 MG/ML VIAL IM ONE (15:03)
[2024-10-11 20:24] VITALS: BP 114/84; PULSE 74; RESP 19; TEMP 98.1; O2SAT 99
[2024-10-12 08:52] VITALS: BP 118/63; PULSE 92; RESP 18; TEMP 98.7; O2SAT 98
[2024-10-12] MEDS: ARIPiprazole 15 MG TABLET PO SCH (09:00)
[2024-10-12 20:40] VITALS: RESP 16
[2024-10-13 08:11] VITALS: BP 123/79; PULSE 80; RESP 16; TEMP 97.5; O2SAT 96
[2024-10-13] MEDS ORDERED: ARIP15TA27 PO (13:58)
== END 2024-10-13 15:50 | disposition home or self-care (01) | DRG 885 ==
LOC: EMS 05:24 → B3A 11:09
PROVIDERS: ADMIT Psychiatry & Neurology Psychiatry; ATTEND Psychiatry & Neurology Psychiatry
PROC: GZHZZZZ Group Psychotherapy (ICD-10-PCS; principal; 2024-10-01)
PROC: GZ51ZZZ Individual Psychotherapy, Behavioral (ICD-10-PCS; 2024-10-01)
DX: F25.1 Schizoaffective disorder, depressive type (principal); R45.851 Suicidal ideations; Z59.00 Homelessness unspecified; E87.6 Hypokalemia; Z20.822 Contact with and (suspected) exposure to COVID-19; I10 Essential (primary) hypertension; F15.10 Other stimulant abuse, uncomplicated; F14.90 Cocaine use, unspecified, uncomplicated; F19.10 Other psychoactive substance abuse, uncomplicated; K40.90 Unilateral inguinal hernia, without obstruction or gangrene, not specified as recurrent; Z79.899 Other long term (current) drug therapy; Z87.891 Personal history of nicotine dependence; Z88.0 Allergy status to penicillin; Z88.8 Allergy status to other drugs, medicaments and biological substances
CPT/HCPCS: 76700; 76870; 80048; 80061; 83036; 84443; 85025; 99285; G0480; J1200; J2060; J3230

== ENCOUNTER 2024-10-19 18:21 | Emergency (ER) | payer MEDICARE, MEDICAID ==
[~2024-10-19] VITALS: Ht 177.8 cm; Wt 68.6 kg
[~2024-10-19 18:21] MED LIST changes: +ARIP15TA27 PO; -OLAN5TAB94 PO
[2024-10-19 18:25] VITALS: BP 134/98; PULSE 104; RESP 18; TEMP 98.7; O2SAT 97
[2024-10-19 20:16] LABS: EOSINOPHILS % (AUTO) 4.1 % (1.0-6.0); HEMATOCRIT 40.9 % (41-53); HEMOGLOBIN 14.2 g/dL (13.5-17.5); LYMPHOCYTES # (AUTO) 2.1 K/uL (1.0-4.8); LYMPHOCYTES % (AUTO) 24.8 % (22.0-44.0); MEAN CORPUSCULAR HEMOGLOBIN 30.9 pg (26.0-34.0); MEAN CORPUSCULAR HGB CONC 34.7 G/dL (31.0-37.0); MEAN CORPUSCULAR VOLUME 89 fL (80-100); MONOCYTES # (AUTO) 0.6 K/uL (0.1-1.0); MONOCYTES % (AUTO) 7.2 % (2.0-9.0); NEUTROPHILS # (AUTO) 5.4 K/uL (1.8-7.7); NEUTROPHILS % (AUTO) 62.9 % (40.0-70.0); PLATELET COUNT (AUTO) 298 K/uL (150-450); RED CELL DISTRIBUTION WIDTH 14.7 % (11.5-14.5); WHITE BLOOD COUNT (AUTO) 8.5 K/uL (4.5-11.0)
[2024-10-19 20:21] LABS: ANION GAP 10 mmol/L (8-16); CALCIUM, TOTAL 8.2 mg/dL (8.8-10.5); CARBON DIOXIDE 27 mmol/L (22-29); CHLORIDE 106 mmol/L (98-107); CREATININE 0.94 mg/dL (0.60-1.30); GLOMERULAR FILTR. RATE CALC > 60 mL/min (>60); GLUCOSE,RANDOM 129 mg/dL (70-110); POTASSIUM 3.8 mmol/L (3.5-5.1); SODIUM SERUM 143 mmol/L (136-145); UREA NITROGEN, BLOOD 14 mg/dL (7-18)
[2024-10-19 20:22] LABS: ALCOHOL, BLOOD (SERUM) < 3 mg/dL (0-10)
[2024-10-20 00:34] LABS: COVID AG,FIA SOURCE NASAL SWAB
[2024-10-20 00:51] LABS: SARS-COV2 (COVID) ANTIGEN,FIA Negative (Negative)
== END 2024-10-20 02:17 | disposition home or self-care (01) ==
LOC: EMS 18:21
DX: F20.0 Paranoid schizophrenia (principal); F15.10 Other stimulant abuse, uncomplicated; I10 Essential (primary) hypertension; F17.210 Nicotine dependence, cigarettes, uncomplicated; Z88.0 Allergy status to penicillin; Z88.8 Allergy status to other drugs, medicaments and biological substances; Z59.00 Homelessness unspecified; Z20.822 Contact with and (suspected) exposure to COVID-19
CPT/HCPCS: 99282; 87426; 80048; 85025; 36415; G0480

== ENCOUNTER 2024-10-22 12:28 | Emergency (ER) | payer MEDICARE, MEDICAID ==
[~2024-10-22] VITALS: Ht 177.8 cm; Wt 68.6 kg
[2024-10-22 12:35] VITALS: TEMP 98.3
[2024-10-22 14:33] VITALS: BP 111/65; PULSE 84; RESP 16; O2SAT 98
== END 2024-10-22 14:37 | disposition home or self-care (01) ==
LOC: EMS 12:35
DX: F31.9 Bipolar disorder, unspecified (principal); I10 Essential (primary) hypertension; F20.9 Schizophrenia, unspecified; F17.210 Nicotine dependence, cigarettes, uncomplicated; F14.90 Cocaine use, unspecified, uncomplicated; F15.90 Other stimulant use, unspecified, uncomplicated; Z59.00 Homelessness unspecified; Z71.6 Tobacco abuse counseling; Z88.0 Allergy status to penicillin
CPT/HCPCS: 99281; 99406; Z7502

== ENCOUNTER 2024-11-03 11:30 | Emergency (ER) | payer MEDICARE, MEDICAID ==
[~2024-11-03] VITALS: Ht 177.8 cm; Wt 68.2 kg
[2024-11-03 11:39] VITALS: TEMP 98
[2024-11-03 14:31] VITALS: BP 128/72; PULSE 84; RESP 16; O2SAT 98
[2024-11-03] MEDS: ACETAMINOPHEN 500 MG TABLET PO ONE (15:12)
== END 2024-11-03 16:04 | disposition home or self-care (01) ==
LOC: EMS 11:35
DX: K40.90 Unilateral inguinal hernia, without obstruction or gangrene, not specified as recurrent (principal); F31.9 Bipolar disorder, unspecified; F20.9 Schizophrenia, unspecified; I10 Essential (primary) hypertension; F17.210 Nicotine dependence, cigarettes, uncomplicated; F14.90 Cocaine use, unspecified, uncomplicated; F15.90 Other stimulant use, unspecified, uncomplicated; Z59.00 Homelessness unspecified; Z88.0 Allergy status to penicillin
CPT/HCPCS: 99282; Z7502; Z7610

== ENCOUNTER → 2024-11-08 | Emergency (ER) | payer MEDICARE, MEDICAID | END | disposition left against medical advice (07) | LOC: EMS 05:00 | DX: Z53.21 Procedure and treatment not carried out due to patient leaving prior to being seen by health care provider (principal) ==

== ENCOUNTER 2024-11-11 14:41 | Emergency (ER) | payer MEDICARE, MEDICAID | END 2024-11-11 14:59 | disposition left against medical advice (07) | LOC: EMS 14:41 | DX: Z53.21 Procedure and treatment not carried out due to patient leaving prior to being seen by health care provider (principal) ==

== ENCOUNTER 2024-11-14 07:58 | Emergency (ER) | payer MEDICARE, MEDICAID | END 2024-11-14 09:24 | disposition left against medical advice (07) | LOC: EMS 08:01 | DX: I10 Essential (primary) hypertension (principal); Z53.21 Procedure and treatment not carried out due to patient leaving prior to being seen by health care provider ==

== ENCOUNTER 2024-12-21 16:57 | Emergency (ER) | payer MEDICARE, MEDICAID ==
[~2024-12-21] VITALS: Ht 177.8 cm; Wt 65.9 kg
[2024-12-21 17:16] VITALS: BP 118/81; PULSE 90; RESP 17; TEMP 97.1; O2SAT 96
[2024-12-21 17:30] LABS: GLUCOMETER DEV NAME(LOC) ERT.6; GLUCOSE,POINT OF CARE 137 MG/DL (70-110)
== END 2024-12-21 18:02 | disposition home or self-care (01) ==
LOC: EMS 16:58
DX: I10 Essential (primary) hypertension (principal); F31.9 Bipolar disorder, unspecified; F20.9 Schizophrenia, unspecified; F17.210 Nicotine dependence, cigarettes, uncomplicated; Z88.0 Allergy status to penicillin; Z88.8 Allergy status to other drugs, medicaments and biological substances; Z59.00 Homelessness unspecified
CPT/HCPCS: 82962; 99282

== ENCOUNTER 2025-01-23 08:11 | Emergency (ER) | payer MEDICARE, MEDICAID | END 2025-01-23 08:44 | disposition left against medical advice (07) | LOC: EMS 08:11 | DX: Z53.21 Procedure and treatment not carried out due to patient leaving prior to being seen by health care provider (principal) ==

== ENCOUNTER 2025-02-07 02:41 | Emergency (ER) | payer MEDICARE, MEDICAID ==
[~2025-02-07] VITALS: Ht 172.7 cm; Wt 64.0 kg
[2025-02-07 02:45] VITALS: BP 149/70; PULSE 100; RESP 18; TEMP 98.2; O2SAT 97
== END 2025-02-07 05:09 | disposition home or self-care (01) ==
LOC: EMS 05:09
DX: F20.9 Schizophrenia, unspecified (principal); Z59.00 Homelessness unspecified; F31.9 Bipolar disorder, unspecified; I10 Essential (primary) hypertension; F17.210 Nicotine dependence, cigarettes, uncomplicated; F15.90 Other stimulant use, unspecified, uncomplicated; F14.90 Cocaine use, unspecified, uncomplicated; F19.90 Other psychoactive substance use, unspecified, uncomplicated; Z88.0 Allergy status to penicillin; Z72.89 Other problems related to lifestyle
CPT/HCPCS: 99281; Z7502

== ENCOUNTER 2025-02-16 19:13 | Emergency (ER) | payer MEDICARE, MEDICAID ==
[~2025-02-16] VITALS: Ht 179.1 cm; Wt 70.5 kg
[2025-02-16 19:33] VITALS: BP 126/96; PULSE 90; RESP 18; TEMP 98.1; O2SAT 99
== END 2025-02-16 22:30 | disposition left against medical advice (07) ==
LOC: EMS 19:13
DX: Z00.8 Encounter for other general examination (principal); Z53.21 Procedure and treatment not carried out due to patient leaving prior to being seen by health care provider

== ENCOUNTER 2025-03-02 03:06 | Emergency (ER) | payer MEDICARE, MEDICAID ==
[~2025-03-02] VITALS: Ht 180.3 cm; Wt 70.5 kg
[2025-03-02 03:23] VITALS: BP 124/87; PULSE 88; RESP 18; TEMP 98.1; O2SAT 100
== END 2025-03-02 05:09 | disposition left against medical advice (07) ==
LOC: EMS 03:08
DX: Z00.8 Encounter for other general examination (principal); Z53.21 Procedure and treatment not carried out due to patient leaving prior to being seen by health care provider

== ENCOUNTER 2025-03-04 07:30 | Emergency (ER) | payer MEDICARE, MEDICAID ==
[~2025-03-04] VITALS: Ht 180.3 cm; Wt 70.9 kg
[2025-03-04 07:33] VITALS: TEMP 98
[2025-03-04] MEDS: ACETAMINOPHEN 500 MG TABLET PO ONE (08:09)
[2025-03-04] MEDS ORDERED: ACET-3385 PO (08:31)
[2025-03-04 08:38] VITALS: BP 112/93; PULSE 72; RESP 18; O2SAT 100
== END 2025-03-04 08:45 | disposition home or self-care (01) ==
LOC: EMS 07:30
DX: S50.01XA Contusion of right elbow, initial encounter (principal); I10 Essential (primary) hypertension; F20.9 Schizophrenia, unspecified; F31.9 Bipolar disorder, unspecified; F15.90 Other stimulant use, unspecified, uncomplicated; F14.90 Cocaine use, unspecified, uncomplicated; Z59.00 Homelessness unspecified; Z88.0 Allergy status to penicillin; Z98.890 Other specified postprocedural states; W01.0XXA Fall on same level from slipping, tripping and stumbling without subsequent striking against object, initial encounter; Y93.89 Activity, other specified; Y92.89 Other specified places as the place of occurrence of the external cause; Y99.8 Other external cause status
CPT/HCPCS: 99283

== ENCOUNTER 2025-03-06 08:34 | Emergency (ER) | payer MEDICARE, MEDICAID ==
[~2025-03-06] VITALS: Ht 180.3 cm; Wt 70.0 kg
[~2025-03-06 08:34] MED LIST changes: +ACET-3385 PO; -ARIP15TA27 PO
[2025-03-06 08:40] VITALS: TEMP 97.9
[2025-03-06 09:15] VITALS: BP 115/78; PULSE 75; RESP 16; O2SAT 98
[2025-03-06] MEDS: BACITRACIN 28 GM OINTMENT TP ONE (09:20)
== END 2025-03-06 09:36 | disposition home or self-care (01) ==
LOC: EMS 08:34
DX: M79.671 Pain in right foot (principal); F31.9 Bipolar disorder, unspecified; I10 Essential (primary) hypertension; F20.9 Schizophrenia, unspecified; F17.210 Nicotine dependence, cigarettes, uncomplicated; F14.90 Cocaine use, unspecified, uncomplicated; F15.90 Other stimulant use, unspecified, uncomplicated; Z59.00 Homelessness unspecified; Z88.0 Allergy status to penicillin; Z79.899 Other long term (current) drug therapy
CPT/HCPCS: 99283

== ENCOUNTER 2025-03-16 17:56 | Emergency (ER) | payer MEDICARE, MEDICAID ==
[~2025-03-16] VITALS: Ht 177.8 cm; Wt 72.7 kg
[2025-03-16 18:06] VITALS: BP 116/84; PULSE 76; RESP 18; TEMP 97.7; O2SAT 100
== END 2025-03-16 23:00 | disposition home or self-care (01) ==
LOC: EMS 17:56
DX: F20.9 Schizophrenia, unspecified (principal); F31.9 Bipolar disorder, unspecified; I10 Essential (primary) hypertension; F14.90 Cocaine use, unspecified, uncomplicated; F15.90 Other stimulant use, unspecified, uncomplicated; F17.210 Nicotine dependence, cigarettes, uncomplicated; Z59.00 Homelessness unspecified; Z88.0 Allergy status to penicillin; Z79.899 Other long term (current) drug therapy; Z91.09 Other allergy status, other than to drugs and biological substances; Z98.890 Other specified postprocedural states; Z13.1 Encounter for screening for diabetes mellitus
CPT/HCPCS: 82962; 99282

== ENCOUNTER 2025-03-19 15:45 | Emergency (ER) | payer MEDICARE, MEDICAID | END 2025-03-19 16:44 | disposition left against medical advice (07) | LOC: EMS 15:45 | DX: I10 Essential (primary) hypertension (principal); Z53.21 Procedure and treatment not carried out due to patient leaving prior to being seen by health care provider ==

== ENCOUNTER 2025-04-30 13:15 | Inpatient (IN) | payer MEDICARE, MEDICAID ==
[~2025-04-30] VITALS: Ht 182.9 cm; Wt 68.0 kg
[2025-04-30] MEDS ORDERED: OLANZapine 5 MG RAPDIS TABLET PO PRN (15:15)
[2025-04-30] MEDS ORDERED: ZOLPIDEM TARTRATE 10 MG TABLET PO PRN (15:15)
[2025-04-30 15:23] LABS: PLATELET COUNT (AUTO) 265 K/uL (150-450); RED BLOOD CELL COUNT(AUTO) 4.68 MIL/uL (4.50-5.90); RED CELL DISTRIBUTION WIDTH 14.3 % (11.5-14.5); WHITE BLOOD COUNT (AUTO) 6.6 K/uL (4.5-11.0)
[2025-04-30 15:24] LABS: COVID AG,FIA SOURCE NASAL SWAB
[2025-04-30 15:33] LABS: CALCIUM, TOTAL 9.1 mg/dL (8.8-10.5); CREATININE 0.83 mg/dL (0.60-1.30); GLOMERULAR FILTR. RATE CALC > 60 mL/min (>60); GLUCOSE,RANDOM 88 mg/dL (70-110); SODIUM SERUM 138 mmol/L (136-145); UREA NITROGEN, BLOOD 16 mg/dL (7-18)
[2025-04-30 15:46] LABS: SARS-COV2 (COVID) ANTIGEN,FIA Negative (Negative)
[2025-04-30] MEDS: POTASSIUM CHLORIDE 20 MEQ ER TABLET PO ONE (17:03)
[2025-04-30 19:38] VITALS: O2SAT 100
[2025-04-30 21:13] VITALS: BP 110/93; PULSE 83; RESP 18; TEMP 98.6; O2SAT 99
[2025-04-30] MEDS: PNEUMOCOCCAL VACCINE POLYVALENT 0.5 ML SYRINGE [PPSV23] IM. ONE (23:15)
[2025-05-01] MEDS ORDERED: GuaiFENesin/D-METHORPHAN [SUGAR-FREE] 200-20MG/10 ML SYRUP UDCUP PO PRN (07:30)
[2025-05-01] MEDS ORDERED: MAGNESIUM HYDROXIDE SUSPENSION 30 ML UDCUP PO PRN (07:30)
[2025-05-01] MEDS ORDERED: PETROLATUM,WHITE 28 GM JELLY TP PRN (07:30)
[2025-05-01] MEDS ORDERED: ALBUTEROL SULFATE HFA 90 MCG/PUFF 8 GM INHALER IH PRN (07:30)
[2025-05-01] MEDS ORDERED: DOCUSATE SODIUM 100 MG CAPSULE PO PRN (07:30)
[2025-05-01] MEDS ORDERED: NICOTINE 14 MG/24 HOUR PATCH TD PRN (07:30)
[2025-05-01] MEDS ORDERED: IBUPROFEN 400 MG TABLET PO PRN (07:30)
[2025-05-01] MEDS ORDERED: ONDANSETRON 4 MG TABLET PO PRN (07:30)
[2025-05-01] MEDS ORDERED: ACETAMINOPHEN 325 MG TABLET PO PRN (07:30)
[2025-05-01] MEDS ORDERED: MAG HYDROX/ALUMINUM HYD/SIMETH ES 30 ML SUSPENSION UDCUP PO PRN (07:30)
[2025-05-01] MEDS ORDERED: LOPERAMIDE HCL 2 MG CAPSULE PO PRN (07:30)
[2025-05-01 08:49] VITALS: BP 127/85; PULSE 86; RESP 17; TEMP 97.2; O2SAT 96
[2025-05-01 20:26] VITALS: RESP 18
[2025-05-02 08:36] VITALS: BP 139/90; PULSE 80; RESP 18; TEMP 97.5; O2SAT 96
[2025-05-02 20:32] VITALS: RESP 18
[2025-05-03 08:23] VITALS: RESP 18
== END 2025-05-03 16:00 | disposition left against medical advice (07) | DRG 885 ==
LOC: EMS 13:16 → B2S 17:26
PROVIDERS: ADMIT Psychiatry & Neurology Child & Adolescent Psychiatry; ATTEND Psychiatry & Neurology Child & Adolescent Psychiatry
PROC: GZ56ZZZ Individual Psychotherapy, Supportive (ICD-10-PCS; 2025-05-01)
PROC: GZ58ZZZ Individual Psychotherapy, Cognitive-Behavioral (ICD-10-PCS; 2025-05-01)
PROC: GZ52ZZZ Individual Psychotherapy, Cognitive (ICD-10-PCS; principal; 2025-05-02)
DX: F20.9 Schizophrenia, unspecified (principal); Z59.00 Homelessness unspecified; F20.0 Paranoid schizophrenia; Z20.822 Contact with and (suspected) exposure to COVID-19; F15.10 Other stimulant abuse, uncomplicated; E87.6 Hypokalemia; I10 Essential (primary) hypertension; F17.200 Nicotine dependence, unspecified, uncomplicated; F11.90 Opioid use, unspecified, uncomplicated; F14.90 Cocaine use, unspecified, uncomplicated; Z53.29 Procedure and treatment not carried out because of patient's decision for other reasons; Z88.0 Allergy status to penicillin
CPT/HCPCS: 80048; 85025; 90732; 99285; G0480

== ENCOUNTER 2025-07-10 07:21 | Emergency (ER) | payer MEDICARE, MEDICAID ==
[~2025-07-10] VITALS: Ht 177.8 cm; Wt 70.5 kg
[2025-07-10 07:42] VITALS: BP 131/86; PULSE 82; RESP 18; TEMP 97.5; O2SAT 98
== END 2025-07-10 08:56 | disposition left against medical advice (07) ==
LOC: EMS 07:21
DX: Z00.8 Encounter for other general examination (principal); Z53.21 Procedure and treatment not carried out due to patient leaving prior to being seen by health care provider
CPT/HCPCS: 99281; Z7502

== ENCOUNTER 2025-07-14 11:03 | Emergency (ER) | payer MEDICARE, MEDICAID ==
[~2025-07-14] VITALS: Ht 180.3 cm; Wt 70.5 kg
[2025-07-14 11:04] VITALS: BP 112/84; PULSE 91; RESP 16; TEMP 97.9; O2SAT 99
[2025-07-14] MEDS ORDERED: DIPH50CA37 PO (12:44)
== END 2025-07-14 13:28 | disposition home or self-care (01) ==
LOC: EMS 11:27
DX: T78.04XA Anaphylactic reaction due to fruits and vegetables, initial encounter (principal); F20.0 Paranoid schizophrenia; F15.10 Other stimulant abuse, uncomplicated; F19.11 Other psychoactive substance abuse, in remission; F31.9 Bipolar disorder, unspecified; F14.90 Cocaine use, unspecified, uncomplicated; F17.210 Nicotine dependence, cigarettes, uncomplicated; I10 Essential (primary) hypertension; Z98.890 Other specified postprocedural states; Z59.00 Homelessness unspecified; Z88.0 Allergy status to penicillin
CPT/HCPCS: 99282; Z7502; Z7610

== ENCOUNTER 2025-07-25 15:50 | Emergency (ER) | payer MEDICARE, MEDICAID ==
[~2025-07-25 15:50] MED LIST changes: -ACET-3385 PO; +DIPH50CA37 PO
== END 2025-07-25 16:55 | disposition left against medical advice (07) ==
LOC: EMS 15:53
DX: Z00.8 Encounter for other general examination (principal); Z53.21 Procedure and treatment not carried out due to patient leaving prior to being seen by health care provider